=== PATIENT | male | born 1945 | race Caucasian/White ===

== ENCOUNTER 2024-05-01 12:58 | Outpatient (AMB) | payer MEDICARE, SELFPAY ==
[2024-05-01 13:09] VITALS: BP 128/54; PULSE 87; O2SAT 99; BMI 24.0
--- NOTE | 2024-05-01 13:09 | MHC.PC.OV ---
Vital Signs 05/01/24 13:09 Height 5 ft 8 in Weight 158 lb BMI 24.0 BP 128/54 L Blood Pressure Location Rt brachial Position Sitting Pulse 87 Pulse Source Pulse Oximeter Pulse Oximetry (%) 99 Oxygen Delivery Method Room Air Intake Visit Reasons: [employer] C[employer] Intake Note: Patient reports he was seeing Dr. Wilson from [facility] and followed her to [facility] practices. Patient reports hearing loss and would like a referral to ENT. Patient reports he would like to know the results of his last labs completed with [facility]. Patient reports he needs RX's for glipizide and gababpentin. Patient reports he has painful knees and would like to request Naproxen for pain relief. Patient states he had prostate cancer and had radiation done and he has a few lingering issues-cannot empty bladder, frequent urination, and unable to get an erection- patient is trying to get compensation from the [place] and is requesting a letter stating the issues he is having post radiation. Patient also wanted the doctor to know he gets out of breath with moderate exertion (like mowing the lawn). Courier Required: No Accompanied by: Self / Same As Patient Allergies No Known Allergies Allergy (Verified 05/01/24 13:16) Tobacco use date assessed: 05/01/24 Fall risk assessment: No Falls in past year Dental Screening Dental Screen Date: 05/01/24 Did you have a dental visit in the last 12 months?: Yes Did you have a dental problem in the last 6 months where you did not have access to dental care?: No Was dental information given to patient?: Patient has dentist HPI HPI Comments History of Present Illness Details 78 year old male with a past medical history of diabetes, arthritis, hyperlipidemia, prostate cancer for follow up Diabetes: On metformin 1000mg twice daily, glipizide. A1C due. Stable bilateral foot neuropathy. Annual eye exams with Dr Alba. ED on cialis CV: on lipitor. Prostate Ca-follows with urology, rad onc. Finished radiation and ADT. Follows with oncology OA:Bilateral wrist pain, bilateral knee pain. Using prn CBD. Esophageal stricture: Follows with Dr Schmitz. Labs in 2023 with anemia. Colonoscopy 2020. ROS see HPI PHYSICAL EXAM: GENERAL: Alert and oriented x 3. NAD EYES: EOMI. Anicteric. HENT: Moist mucous membranes. No scleral icterus. No cervical lymphadenopathy. LUNGS: Clear to auscultation bilaterally. CARDIOVASCULAR: Regular rate and rhythm. No murmur. No JVD. ABDOMEN: Soft, non-tender +bs EXTREMITIES: No edema. Non-tender. SKIN: No rashes or lesions. Warm. NEUROLOGIC: No focal neurological deficits. CN II-XII grossly intact PSYCHIATRIC: Cooperative. Appropriate mood and affect [facility] Medical History (Updated 05/15/24 @ 20:53 by Jordyn Wilson MD) Shoulder separation Vitamin B12 deficiency Type 2 diabetes mellitus Prostate cancer Hypercholesterolemia Hemorrhoids Esophageal stricture Elevated PSA Elevated MCV Arthritis Surgical History (Updated 05/01/24 @ 13:38 by Joanna Beverly CMA) History of eye surgery History of elbow surgery History of vasectomy History of colonoscopy Family History (Updated 05/01/24 @ 13:41 by Joanna Beverly CMA) Mother Alzheimer's dementia Father Cancer Brother Diabetes Social History (Updated 05/01/24 @ 13:39 by Joanna Beverly CMA) Household Members: Spouse and Children Housing: House Are you a primary home care provider to a significant other at home: No Do you presently have visiting nurse or other home services: No Alcohol intake: current Alcohol intake frequency: 0-2 drinks per day Alcohol type: wine Patient Tobacco Use Status: Former Tobacco user Cigarette Packs Per Day: 1 Years Smoked: 4 e-Cigarette/Vaping Use: Never Used service: Yes Current occupational status: employed Current occupation: [employer] Cognitive needs: No Hearing needs: Yes Vision needs: No Questionnaire PHQ-9 Over the last 2 weeks, how often have you been bothered by any of the following problems? 1. Little interest or pleasure in doing things: not at all 2. Feeling down, depressed, or hopeless: not at all 3. Trouble falling or staying asleep, or sleeping too much: not at all 4. Feeling tired or having little energy: not at all 5. Poor appetite or overeating: not at all 6. Feeling bad about yourself - or that you are a failure or have let yourself or your family down: not at all 7. Trouble concentrating on things, such as reading the newspaper or watching television: not at all 8. Moving or speaking so slowly that other people could have noticed. Or the opposite - being so fidgety or restless that you have been moving around a lot more than usual: not at all 9. Thoughts that you would be better off or of hurting yourself in some way: not at all Total score: 0 Depression Screening Interpretation: Negative Depression Screening Done: Yes 88084 - PHQ-9 Billing: Yes Source: Developed by Drs. Lior Lynn, Khadra Najera, Tim Hammer and colleagues, with an educational carol from [employer]. Thrive Questionnaire Date Thrive assessed: 05/01/24 I am a: Patient What is your living situation today?: I have a steady place to live Within the past 12 months, did the food you bought not last and you didn't have the money to get more?: Never true Within the past 12 months, did you worry whether your food would run out before you got money to buy more?: Never true Do you have trouble paying for medicines?: No Do you have trouble getting transportation to medical appointments?: No Do you have trouble paying your heating and electricity bill?: No Do you have trouble taking care of your child, family member or friend?: No Do you have trouble with day-to-day activities such as bathing, preparing meals, shopping, managing finances, etc.?: No Are you currently unemployed and looking for a job?: No Are you interested in more education?: No Please select the resources that you would like help with: None Currently or been in a relationship where the following occur: No concerns reported THRIVE Score: 0 AUDIT C Alcohol Use Questionnaire (AUDIT-C) 1. How often do you have a drink containing alcohol?: 2-3 times a week 2. How many drinks containing alcohol do you have on a typical day when you are drinking?: 1 or 2 3. How often do you have six or more drinks on one occasion?: Never Total Score: 3 ASHLI-7 AMB Questionnaire ASHLI-7 Date ASHLI - 7 assessed: 05/01/24 Feeling nervous, anxious, or on edge: 0 = Not at all Not being able to stop or control worryin = Not at all Worrying too much about different things: 0 = Not at all Trouble relaxin = Not at all Being so restless that it is hard to sit still: 0 = Not at all Becoming easily annoyed or irritable: 0 = Not at all Feeling afraid as if something awful might happen: 0 = Not at all Total ASHLI-7 score (0-4 normal; 5-9 mild; 10-14 moderate; 15-21 severe): 0 Source: Developed by Drs. Lior Lynn, Kharda Najera, Tim Hammer and colleagues, with an educational carol from [employer]. ASHLI-7 Assessment Billing ASHLI-7 Assessment Tool: ASHLI-7 Assessment 43024 Physical exam (Primary Care) Vital Signs: Last Vital Signs Pulse 87 05/01/24 13:09 BP 128/54 L 05/01/24 13:09 Pulse Ox 99 05/01/24 13:09 Oxygen Delivery Method Room Air 05/01/24 13:09 BMI result Body Mass Index 24.0 Tobacco/Smoking Status: Tobacco use Status Tobacco use date assessed 05/01/24 05/01/24 13:23 Patient Tobacco Use Status Former Tobacco user 05/01/24 13:39 e-Cigarette/Vaping Use Never Used 05/01/24 13:39 PHQ-9: PHQ-9 Score PHQ-9: Total score 0 05/15/24 20:53 Depression Screening Interpretation: Negative Thrive Assessment: Date of Thrive Assessment Date Thrive assessed 05/01/24 05/01/24 13:34 Currently or been in a relationship where the following occur: No concerns reported Assessment and Plan Assessment & Plan (1) Hypercholesterolemia: Code(s): E78.00 - Pure hypercholesterolemia, unspecified Plan: stable on statin (2) Prostate cancer: Code(s): C61 - Malignant neoplasm of prostate (3) Type 2 diabetes mellitus: Code(s): E11.9 - Type 2 diabetes mellitus without complications Qualifiers: Diabetes mellitus complication detail: with polyneuropathy Diabetes mellitus complication status: with neurologic complications Diabetes mellitus termination clerk insulin use: without termination clerk use Qualified Code(s): E11.42 - Type 2 diabetes mellitus with diabetic polyneuropathy Plan: check labs (4) Anemia: Code(s): D64.9 - Anemia, unspecified Qualifiers: Anemia type: unspecified type Qualified Code(s): D64.9 - Anemia, unspecified (5) Bilateral knee pain: Code(s): M25.561 - Pain in right knee; M25.562 - Pain in left knee (6) Globus sensation: Code(s): R09.A2 - Foreign body sensation, throat Orders: Orders Vitamin B12 and Folate 05/01/24 E11.9 - Type 2 diabetes mellitus without complications, C61 - Malignant neoplasm of prostate, E78.00 - Pure hypercholesterolemia, unspecified, D64.9 - Anemia, unspecified Hemoglobin A1c 05/01/24 E11.9 - Type 2 diabetes mellitus without complications, C61 - Malignant neoplasm of prostate, E78.00 - Pure hypercholesterolemia, unspecified, D64.9 - Anemia, unspecified Lipid Panel 05/01/24 E11.9 - Type 2 diabetes mellitus without complications, E78.00 - Pure hypercholesterolemia, unspecified Microalbumin, Random (w Creat) 05/01/24 E11.9 - Type 2 diabetes mellitus without complications, E78.00 - Pure hypercholesterolemia, unspecified Comprehensive Met. Panel 05/01/24 E11.9 - Type 2 diabetes mellitus without complications, E78.00 - Pure hypercholesterolemia, unspecified Complete Blood Count Auto Diff 05/01/24 E11.9 - Type 2 diabetes mellitus without complications, C61 - Malignant neoplasm of prostate, E78.00 - Pure hypercholesterolemia, unspecified, D64.9 - Anemia, unspecified Comprehensive Met. Panel 05/01/24 E11.9 - Type 2 diabetes mellitus without complications, C61 - Malignant neoplasm of prostate, E78.00 - Pure hypercholesterolemia, unspecified, D64.9 - Anemia, unspecified Hemoglobin A1c 05/01/24 E11.9 - Type 2 diabetes mellitus without complications, E78.00 - Pure hypercholesterolemia, unspecified Referrals Ear/Nose/Throat Referral H91.90 - Unspecified hearing loss, unspecified ear, R09.A2 - Foreign body sensation, throat Orthopedics Referral M25.561 - Pain in right knee, M25.562 - Pain in left knee Medications: New cyanocobalamin (vitamin B-12) soft gel 1,000 mcg PO DAILY 90 caps 3RF tamsulosin 0.4 mg PO DAILY 90 caps 3RF 90 days atorvastatin 10 mg PO DAILY 90 tabs 3RF 90 days gabapentin 100 - 200 mg (1 - 2 x 100 mg) PO TID 540 caps 3RF 90 days glipizide 10 mg PO DAILY 90 tabs 3RF 90 days Coding Level of Care Code Est Pt Level 4 (84334) Diagnoses Hypercholesterolemia E78.00 Prostate cancer C61 Type 2 diabetes mellitus with diabetic polyneuropathy, without long-term current use of insulin E11.42 Diabetes mellitus complication detail: with polyneuropathy Diabetes mellitus complication status: with neurologic complications Diabetes mellitus jail insulin use: without jail use Anemia, unspecified type D64.9 Anemia type: unspecified type Bilateral knee pain M25.561; M25.562 Globus sensation R09.A2 Additional Codes ASHLI-7 Assessment Billing - ASHLI-7 Assessment Tool: ASHLI-7 Assessment 96150 ([id number])
== END 2024-05-01 14:21 | disposition home or self-care (01) ==
PROVIDERS: PCP Internal Medicine; Visit Provider Internal Medicine
DX: E78.00 Pure hypercholesterolemia, unspecified (principal); C61 Malignant neoplasm of prostate; E11.42 Type 2 diabetes mellitus with diabetic polyneuropathy; D64.9 Anemia, unspecified; M25.561 Pain in right knee; M25.562 Pain in left knee; R09.A2 Foreign body sensation, throat
CPT/HCPCS: 99204; 99214

== ENCOUNTER 2024-05-01 14:25 | Outpatient (REF) | payer MEDICARE, SELFPAY ==
[2024-05-01 17:54] LABS: Estimated Average Glucose 206 mg/dL; Hemoglobin A1c % 8.8 % (<6.0)
[2024-05-01 18:01] LABS: Alanine Aminotransferase 22 U/L (0-40); Albumin Level 3.8 g/dL (3.5-5.0); Alkaline Phosphatase 47 U/L (39-117); Anion Gap 13 (12-20); Aspartate Amino Transferase 19 U/L (5-37); Bilirubin Total 0.9 mg/dL (0.0-1.0); Blood Urea Nitrogen 21 mg/dL (9-16); Calcium 8.9 mg/dL (8.4-10.2); Carbon Dioxide 22 mmol/L (22-29); Chloride 107 mmol/L (96-108); Cholesterol 109 mg/dL (<200); Estimated Glomerular Filt Rate > 60; Glucose Random 337 mg/dL (60-115); HDL Cholesterol 34 mg/dL (>40); LDL Cholesterol Calculated 38 mg/dL (<100); Potassium 4.7 mmol/L (3.3-5.1); Sodium 137 mmol/L (135-145); Total Protein 6.2 g/dL (6.5-8.0); Triglycerides 186 mg/dL (<150)
[2024-05-01 18:08] LABS: Microalbum/Creatinine Ratio Ur 120.9 ug/mg cr (<30)
[2024-05-01 18:31] LABS: Folate 10.7 ng/mL (> or = 4.0); Vitamin B12 968 pg/mL (200-900)
== END 2024-05-01 14:26 | disposition home or self-care (01) ==
LOC: HO.WFDLDS 14:25
PROVIDERS: Visit Provider Internal Medicine
DX: E11.9 Type 2 diabetes mellitus without complications (principal); C61 Malignant neoplasm of prostate; E78.00 Pure hypercholesterolemia, unspecified; D64.9 Anemia, unspecified
CPT/HCPCS: 36415; 80053; 80061; 82043; 82570; 82607; 82746; 83036

== ENCOUNTER 2024-09-04 09:03 | Outpatient (AMB) | payer MEDICARE, SELFPAY ==
[2024-09-04 09:07] VITALS: BP 118/60; PULSE 82; O2SAT 97; BMI 23.0
--- NOTE | 2024-09-04 09:07 | A.OFFPC_ITS ---
Vital Signs 09/04/24 09:07 Height 5 ft 8 in Weight 151 lb 2 oz BMI 23.0 BP 118/60 Blood Pressure Location Lt brachial Position Sitting Pulse 82 Pulse Source Pulse Oximeter Pulse Oximetry (%) 97 Oxygen Delivery Method Room Air Intake Visit Reasons: dm Allergies No Known Allergies Allergy (Verified 09/04/24 09:10) Tobacco use date assessed: 09/04/24 Fall risk assessment: 1 Fall in past year Last assessed Fall Risk: 09/04/24 Dental Screening Dental Screen Date: 09/04/24 Did you have a dental visit in the last 12 months?: Yes Did you have a dental problem in the last 6 months where you did not have access to dental care?: No Was dental information given to patient?: Patient has dentist HPI HPI Comments History of Present Illness Details 78 year old male with a past medical his tory of diabetes, arthritis, hyperlipidemia, prostate cancer for follow up Diabetes: On metformin 1000mg twice daily, glipizide. A1C due. Stable bilateral foot neuropathy. Annual eye exams with Dr Alba. ED on cialis CV: on lipitor. Prostate Ca-follows with urology, rad onc. Finished radiation and ADT. Follows with oncology OA:Bilateral wrist pain, bilateral knee pain. Using prn CBD. Esophageal stricture: Follows with Dr Schmitz. Labs in 2023 with anemia. Colonoscopy 2020. ROS see HPI PHYSICAL EXAM: GENERAL: Alert and oriented x 3. NAD EYES: EOMI. Anicteric. HENT: Moist mucous membranes. No scleral icterus. No cervical lymphadenopathy. LUNGS: Clear to auscultation bilaterally. CARDIOVASCULAR: Regular rate and rhythm. No murmur. No JVD. ABDOMEN: Soft, non-tender +bs EXTREMITIES: No edema. Non-tender. SKIN: No rashes or lesions. Warm. NEUROLOGIC: No focal neurological deficits. CN II-XII grossly intact PSYCHIATRIC: Cooperative. Appropriate mood and affect [facility] Medical History Shoulder separation Vitamin B12 deficiency Type 2 diabetes mellitus Prostate cancer Hypercholesterolemia Hemorrhoids Esophageal stricture Elevated PSA Elevated MCV Arthritis Surgical History History of eye surgery History of elbow surgery History of vasectomy History of colonoscopy Family History Mother Alzheimer's dementia Father Cancer Brother Diabetes Social History Household Members: Spouse and Children Housing: House Are you a primary tire care manager to a significant other at home: No Do you presently have visiting nurse or other home services: No 75 years or older and lives alone: No Alcohol intake: current Alcohol intake frequency: 0-2 drinks per day Alcohol type: wine Patient Tobacco Use Status: Former Tobacco user Cigarette Packs Per Day: 1 Years Smoked: 4 e-Cigarette/Vaping Use: Never Used service: Yes Current occupational status: employed Current occupation: [employer] Cognitive needs: No Hearing needs: Yes Vision needs: No Questionnaire PHQ-9 Over the last 2 weeks, how often have you been bothered by any of the following problems? 1. Little interest or pleasure in doing things: not at all 2. Feeling down, depressed, or hopeless: not at all 3. Trouble falling or staying asleep, or sleeping too much: not at all 4. Feeling tired or having little energy: not at all 5. Poor appetite or overeating: not at all 6. Feeling bad about yourself - or that you are a failure or have let yourself or your family down: not at all 7. Trouble concentrating on things, such as reading the newspaper or watching television: not at all 8. Moving or speaking so slowly that other people could have noticed. Or the opposite - being so fidgety or restless that you have been moving around a lot more than usual: not at all 9. Thoughts that you would be better off or of hurting yourself in some way: not at all Total score: 0 Depression Screening Interpretation: Negative Depression Screening Done: Yes 77034 - PHQ-9 Billing: Yes Source: Developed by Drs. Lior Lynn, Khadra Najera, Tim Hammer and colleagues, with an educational carol from [employer]. Thrive Questionnaire Date Thrive assessed: 08/28/24 I am a: Patient What is your living situation today?: I have a steady place to live Within the past 12 months, did the food you bought not last and you didn't have the money to get more?: I choose not to answer this question Within the past 12 months, did you worry whether your food would run out before you got money to buy more?: I choose not to answer this question Do you have trouble paying for medicines?: No Do you have trouble getting transportation to medical appointments?: No Do you have trouble paying your heating and electricity bill?: No Do you have trouble taking care of your child, family member or friend?: No Do you have trouble with day-to-day activities such as bathing, preparing meals, shopping, managing finances, etc.?: No Are you currently unemployed and looking for a job?: No Are you interested in more education?: No Please select the resources that you would like help with: None Currently or been in a relationship where the following occur: No concerns reported THRIVE Score: 0 AUDIT C Alcohol Use Questionnaire (AUDIT-C) 1. How often do you have a drink containing alcohol?: 4 or more times a week 2. How many drinks containing alcohol do you have on a typical day when you are drinking?: 1 or 2 3. How often do you have six or more drinks on one occasion?: Never Total Score: 4 ASHLI-7 AMB Questionnaire ASHLI-7 Date ASHLI - 7 assessed: 05/01/24 Feeling nervous, anxious, or on edge: 0 = Not at all Not being able to stop or control worryin = Not at all Worrying too much about different things: 0 = Not at all Trouble relaxin = Not at all Being so restless that it is hard to sit still: 0 = Not at all Becoming easily annoyed or irritable: 0 = Not at all Feeling afraid as if something awful might happen: 0 = Not at all Total ASHLI-7 score (0-4 normal; 5-9 mild; 10-14 moderate; 15-21 severe): 0 Source: Developed by Drs. Lior Lynn, Khadra Najera, Tim Hammer and colleagues, with an educational carol from [employer]. Physical exam (Primary Care) Vital Signs: Last Vital Signs Pulse 82 09/04/24 09:07 BP 118/60 09/04/24 09:07 Pulse Ox 97 09/04/24 09:07 Oxygen Delivery Method Room Air 09/04/24 09:07 BMI result Body Mass Index 23.0 Tobacco/Smoking Status: Tobacco use Status Tobacco use date assessed 09/04/24 09/04/24 09:11 Patient Tobacco Use Status Former Tobacco user 09/04/24 09:11 e-Cigarette/Vaping Use Never Used 09/04/24 09:11 PHQ-9: PHQ-9 Score PHQ-9: Total score 0 09/04/24 09:28 Depression Screening Interpretation: Negative Thrive Assessment: Date of Thrive Assessment Date Thrive assessed 08/28/24 09/04/24 09:11 Currently or been in a relationship where the following occur: No concerns reported Results AMB Hemoglobin A1c AMB Hemoglobin A1c 11.0 % Last Edit by Patricia Deal CMA on 09/04/24 09:28 Results Reviewed Results Reviewed: Laboratory Last Values Hgb A1c (Clinic) 11.0 % (4.0-6.0) H 09/04/24 09:27 Coding Level of Care Code Est Pt Level 4 (43589) Complex EM visit Add On G2211 Diagnoses Type 2 diabetes mellitus with diabetic polyneuropathy, without long-term current use of insulin E11.42 Diabetes mellitus senior living insulin use: without senior living use Diabetes mellitus complication status: with neurologic complications Diabetes mellitus complication detail: with polyneuropathy Prostate cancer C61 Additional Codes PHQ-9 - 59402 - PHQ-9 Billing: Yes ([id number]) Assessment & Plan Assessment & Plan (1) Type 2 diabetes mellitus: Code(s): E11.9 - Type 2 diabetes mellitus without complications Category: Medical Qualifiers: Diabetes mellitus senior living insulin use: without senior living use Diabetes mellitus complication status: with neurologic complications Diabetes mellitus complication detail: with polyneuropathy Qualified Code(s): E11.42 - Type 2 diabetes mellitus with diabetic polyneuropathy Plan: Uncontrolled. Increase glipizide to 20mg daily. Start actos 30mg daily. Continue metformin (2) Prostate cancer: Code(s): C61 - Malignant neoplasm of prostate Category: Medical Plan: Continue follow up Orders: Orders AMB Hemoglobin A1c Today Z13.9 - Encounter for screening, unspecified Medications: New glipizide ER 20 mg (2 x 10 mg) PO DAILY 180 tabs 3RF pioglitazone 30 mg PO DAILY 90 tabs 3RF Refilled gabapentin 100 - 200 mg (1 - 2 x 100 mg) PO TID 90 days 540 caps 3RF Discontinued glipizide Discontinued Reason: Doctor's Order 10 mg PO DAILY 90 days 90 tabs 3RF
== END 2024-09-04 09:57 | disposition home or self-care (01) ==
PROVIDERS: PCP Internal Medicine; Visit Provider Internal Medicine
DX: E11.42 Type 2 diabetes mellitus with diabetic polyneuropathy (principal); C61 Malignant neoplasm of prostate; Z13.9 Encounter for screening, unspecified

== ENCOUNTER → 2024-09-04 09:03 | Outpatient (BNVA) | payer MEDICARE, SELFPAY | PROVIDERS: PCP Internal Medicine; Visit Provider Internal Medicine | DX: E11.42 Type 2 diabetes mellitus with diabetic polyneuropathy (principal); C61 Malignant neoplasm of prostate; Z79.84 Long term (current) use of oral hypoglycemic drugs | CPT/HCPCS: 83036; 96127; 99212 ==

== ENCOUNTER 2024-11-28 09:09 | Outpatient (REF) | payer MEDICARE, SELFPAY ==
[2024-11-28 11:19] LABS: MANUAL DIFF FLAG NO
[2024-11-28 11:33] LABS: Basophils Percent Auto 0.8 % (0-2); Eosinophils Absolute Auto 0.2 X10*3/uL (0.0-0.4); Eosinophils Percent Auto 5.2 % (0-4); Hematocrit 35.3 % (42.0-52.0); Hemoglobin 11.3 g/dl (14.0-18.0); Imm Gran Abs Auto 0.01 X10*3/uL (0.00-0.03); Imm Gran Pct Auto 0.3 % (0.0-0.4); Lymphocytes Absolute Auto 0.9 X10*3/uL (1.2-4.9); Lymphocytes Percent Auto 23.3 % (20-40); Mean Corpuscular Hemoglobin 27.8 pg (27.0-33.0); Mean Corpuscular Volume 86.7 fL (80.0-98.0); Mean Platelet Volume 10.3 fL (9.4-12.4); Monocytes Absolute Auto 0.3 X10*3/uL (0.1-1.2); Monocytes Percent Auto 8.3 % (2-11); Neutrophils Absolute Auto 2.4 x10*3/uL (2.0-8.3); Neutrophils Percent Auto 62.1 % (45-73); Platelet Count 232 X10*3/uL (160-400); Red Blood Count 4.07 X10*6/uL (4.60-5.80); Red Cell Distribution Width 16.7 % (11.0-16.0); White Blood Count 3.9 X10*3/uL (4.8-10.8)
[2024-11-28 11:50] LABS: Estimated Average Glucose 212 mg/dL; Hemoglobin A1C 219.9871 umol/L
[2024-11-28 12:27] LABS: Alanine Aminotransferase 81 U/L (0-40); Albumin Level 3.7 g/dL (3.5-5.0); Alkaline Phosphatase 43 U/L (39-117); Anion Gap 14 (12-20); Aspartate Amino Transferase 127 U/L (5-37); Bilirubin Total 1.2 mg/dL (0.0-1.0); Blood Urea Nitrogen 24 mg/dL (9-16); Calcium 9.1 mg/dL (8.4-10.2); Carbon Dioxide 27 mmol/L (22-29); Chloride 108 mmol/L (96-108); Estimated Glomerular Filt Rate > 60; Glucose Random 146 mg/dL (60-115); Potassium 4.7 mmol/L (3.3-5.1); Sodium 144 mmol/L (135-145); Total Protein 6.6 g/dL (6.5-8.0)
== END 2024-11-28 09:10 | disposition home or self-care (01) ==
LOC: HO.WFDLDS 09:09
PROVIDERS: Visit Provider Internal Medicine
DX: E11.9 Type 2 diabetes mellitus without complications (principal); C61 Malignant neoplasm of prostate; E78.00 Pure hypercholesterolemia, unspecified; D64.9 Anemia, unspecified
CPT/HCPCS: 36415; 80053; 83036; 85025

== ENCOUNTER 2024-12-04 11:11 | Outpatient (AMB) | payer MEDICARE, OTHER, SELFPAY ==
--- NOTE | 2024-12-04 11:36 | A.OFFPC_ITS ---
Vital Signs 12/04/24 11:40 Height 5 ft 8 in Weight 150 lb 6 oz BMI 22.9 BP 124/54 L Blood Pressure Location Lt brachial Position Sitting Respiration 14 Pulse 75 Pulse Source Pulse Oximeter Temp 98.3 F Temp Source Oral Pulse Oximetry (%) 98 Oxygen Delivery Method Room Air Intake Visit Reasons: 3 MONTHS F/U Intake Note: Three month follow up. Cough for about 10 days, mostly at night. Motion Study Engineer Required: No Allergies No Known Allergies Allergy (Verified 12/04/24 11:38) Medication List - Last Reconciled 12/04/24 by Jordyn Wilson MD ascorbic acid (vitamin C) 1 g PO Q6H atorvastatin 10 mg PO DAILY 90 days azithromycin For 250 mg dose pack: take 500 mg today (day 1), then 250 mg for 4 days (days 2-5) PO cholecalciferol (vitamin D3) 125 mcg PO DAILY cyanocobalamin (vitamin B-12) 1,000 mcg PO DAILY empagliflozin (Jardiance) 10 mg PO DAILY gabapentin 300 mg PO BID glipizide ER 20 mg (2 x 10 mg) PO DAILY metformin 1,000 mg PO BID pioglitazone 30 mg PO DAILY prednisone 40 mg (2 x 20 mg) PO DAILY tamsulosin 0.4 mg PO DAILY 90 days Tobacco use date assessed: 12/04/24 Dental Screening Dental Screen Date: 09/04/24 HPI HPI Comments History of Present Illness Details 79 year old male with a past medical his tory of diabetes, arthritis, hyperlipidemia, prostate cancer for follow up Reports 10 day history of cough, increased wheezing. Denies fever Diabetes: On metformin 1000mg twice daily, glipizide. A1C 9.0%. Stable bilateral foot neuropathy. Annual eye exams with Dr Alba. ED on cialis CV: on lipitor. Denies chest pain. Prostate Ca-follows with urology, rad onc. Finished radiation and ADT. Follows with oncology OA:Bilateral wrist pain, bilateral knee pain. Using prn CBD. Esophageal stricture: Follows with Dr Schmitz. Labs in 2023 with anemia. Colonoscopy 2020. ROS see HPI PHYSICAL EXAM: GENERAL: Alert and oriented x 3. NAD EYES: EOMI. Anicteric. HENT: Moist mucous membranes. No scleral icterus. No cervical lymphadenopathy. LUNGS: Clear to auscultation bilaterally. CARDIOVASCULAR: Regular rate and rhythm. No murmur. No JVD. ABDOMEN: Soft, non-tender +bs EXTREMITIES: No edema. Non-tender. SKIN: No rashes or lesions. Warm. NEUROLOGIC: No focal neurological deficits. CN II-XII grossly intact PSYCHIATRIC: Cooperative. Appropriate mood and affect [facility] Medical History Shoulder separation Vitamin B12 deficiency Type 2 diabetes mellitus Prostate cancer Hypercholesterolemia Hemorrhoids Esophageal stricture Elevated PSA Elevated MCV Arthritis Surgical History History of eye surgery History of elbow surgery History of vasectomy History of colonoscopy Family History Mother Alzheimer's dementia Father Cancer Brother Diabetes Social History Household Members: Spouse and Children Housing: House Are you a primary animal care provider to a significant other at home: No Do you presently have visiting nurse or other home services: No 75 years or older and lives alone: No Alcohol intake: current Alcohol intake frequency: 0-2 drinks per day Alcohol type: wine Patient Tobacco Use Status: Former Tobacco user Cigarette Packs Per Day: 1 Years Smoked: 4 e-Cigarette/Vaping Use: Never Used service: Yes Current occupational status: employed Current occupation: [employer] Cognitive needs: No Hearing needs: Yes Vision needs: No Questionnaire PHQ-9 Over the last 2 weeks, how often have you been bothered by any of the following problems? 1. Little interest or pleasure in doing things: not at all 2. Feeling down, depressed, or hopeless: not at all 3. Trouble falling or staying asleep, or sleeping too much: not at all 4. Feeling tired or having little energy: not at all 5. Poor appetite or overeating: not at all 6. Feeling bad about yourself - or that you are a failure or have let yourself or your family down: not at all 7. Trouble concentrating on things, such as reading the newspaper or watching television: not at all 8. Moving or speaking so slowly that other people could have noticed. Or the opposite - being so fidgety or restless that you have been moving around a lot more than usual: not at all 9. Thoughts that you would be better off or of hurting yourself in some way: not at all Total score: 0 Depression Screening Interpretation: Negative Depression Screening Done: Yes 61964 - PHQ-9 Billing: Yes Source: Developed by Drs. Lior Lynn, Khadra Najera, Tim Hammer and colleagues, with an educational carol from [employer]. Thrive Questionnaire Date Thrive assessed: 12/04/24 I am a: Patient What is your living situation today?: I have a steady place to live Within the past 12 months, did the food you bought not last and you didn't have the money to get more?: Never true Within the past 12 months, did you worry whether your food would run out before you got money to buy more?: Never true Do you have trouble paying for medicines?: No Do you have trouble getting transportation to medical appointments?: No Do you have trouble paying your heating and electricity bill?: No Do you have trouble taking care of your child, family member or friend?: No Do you have trouble with day-to-day activities such as bathing, preparing meals, shopping, managing finances, etc.?: No Are you currently unemployed and looking for a job?: No Are you interested in more education?: No Please select the resources that you would like help with: None Currently or been in a relationship where the following occur: No concerns reported THRIVE Score: 0 AUDIT C Alcohol Use Questionnaire (AUDIT-C) 1. How often do you have a drink containing alcohol?: 4 or more times a week 2. How many drinks containing alcohol do you have on a typical day when you are drinking?: 1 or 2 3. How often do you have six or more drinks on one occasion?: Never Total Score: 4 ASHLI-7 AMB Questionnaire ASHLI-7 Date ASHLI - 7 assessed: 12/04/24 Feeling nervous, anxious, or on edge: 0 = Not at all Not being able to stop or control worryin = Not at all Worrying too much about different things: 0 = Not at all Trouble relaxin = Not at all Being so restless that it is hard to sit still: 0 = Not at all Becoming easily annoyed or irritable: 0 = Not at all Feeling afraid as if something awful might happen: 0 = Not at all Total ASHLI-7 score (0-4 normal; 5-9 mild; 10-14 moderate; 15-21 severe): 0 Source: Developed by Drs. Lior Lynn, Khadra Najera, Tim Hammer and colleagues, with an educational carol from [employer]. ASHLI-7 Assessment Billing ASHLI-7 Assessment Tool: ASHLI-7 Assessment 74162 Physical exam (Primary Care) Vital Signs: Last Vital Signs Temp 98.3 F 12/04/24 11:40 Pulse 75 12/04/24 11:40 Resp 14 12/04/24 11:40 BP 124/54 L 12/04/24 11:40 Pulse Ox 98 12/04/24 11:40 Oxygen Delivery Method Room Air 12/04/24 11:40 BMI result Body Mass Index 22.9 Tobacco/Smoking Status: Tobacco use Status Tobacco use date assessed 12/04/24 12/04/24 11:40 Patient Tobacco Use Status Former Tobacco user 12/04/24 11:47 e-Cigarette/Vaping Use Never Used 12/04/24 11:47 PHQ-9: PHQ-9 Score PHQ-9: Total score 0 12/04/24 12:17 Depression Screening Interpretation: Negative Thrive Assessment: Date of Thrive Assessment Date Thrive assessed 12/04/24 12/04/24 11:48 Currently or been in a relationship where the following occur: No concerns reported Coding Level of Care Code Est Pt Level 4 (78701) Complex EM visit Add On G2211 Diagnoses Type 2 diabetes mellitus with diabetic polyneuropathy, without long-term current use of insulin E11.42 Diabetes mellitus assisted insulin use: without assisted use Diabetes mellitus complication status: with neurologic complications Diabetes mellitus complication detail: with polyneuropathy Prostate cancer C61 Respiratory infection J98.8 Anemia, unspecified type D64.9 Anemia type: unspecified type Additional Codes ASHLI-7 Assessment Billing - ASHLI-7 Assessment Tool: ASHLI-7 Assessment 10354 ([id number]) PHQ-9 - 93369 - PHQ-9 Billing: Yes ([id number]) Assessment & Plan Assessment & Plan (1) Type 2 diabetes mellitus: Code(s): E11.9 - Type 2 diabetes mellitus without complications Category: Medical Qualifiers: Diabetes mellitus long term care pharmacist insulin use: without long term care pharmacist use Diabetes mellitus complication status: with neurologic complications Diabetes mellitus complication detail: with polyneuropathy Qualified Code(s): E11.42 - Type 2 diabetes mellitus with diabetic polyneuropathy Plan: Uncontrolled Sart jardiance Improve dietary compliance (2) Prostate cancer: Code(s): C61 - Malignant neoplasm of prostate Category: Medical Plan: continue follow up with urology (3) Respiratory infection: Code(s): J98.8 - Other specified respiratory disorders Category: Medical Plan: azithromycin, prendisone ordered Call for persistent or worsening symptoms (4) Anemia: Code(s): D64.9 - Anemia, unspecified Category: Medical Qualifiers: Anemia type: unspecified type Qualified Code(s): D64.9 - Anemia, unspecified Plan: Monitor. consider referral to hematology for any worsening. Path review, iron ordered. b12 deficiency Orders: Orders Complete Blood Count Auto Diff 12/04/24 D64.9 - Anemia, unspecified, E11.42 - Type 2 diabetes mellitus with diabetic polyneuropathy Hemoglobin A1c 12/04/24 D64.9 - Anemia, unspecified, E11.42 - Type 2 diabetes mellitus with diabetic polyneuropathy IRON PROFILE 12/04/24 D64.9 - Anemia, unspecified, E11.42 - Type 2 diabetes mellitus with diabetic polyneuropathy US abdomen limited 12/04/24 E11.42 - Type 2 diabetes mellitus with diabetic polyneuropathy Pathologist Review - CBC 12/04/24 D64.9 - Anemia, unspecified, E11.42 - Type 2 diabetes mellitus with diabetic polyneuropathy Medications: New empagliflozin (Jardiance) 10 mg PO DAILY 90 tabs 3RF azithromycin For 250 mg dose pack: take 500 mg today (day 1), then 250 mg for 4 days (days 2-5) PO 6 tabs 0RF empagliflozin (Jardiance) 10 mg PO DAILY 90 tabs 3RF prednisone 40 mg (2 x 20 mg) PO DAILY 6 tabs 0RF Changed From gabapentin 100 - 200 mg (1 - 2 x 100 mg) PO TID 90 days 540 caps 3RF To gabapentin 300 mg PO BID
[2024-12-04 11:40] VITALS: BP 124/54; PULSE 75; RESP 14; TEMP 36.8; O2SAT 98; BMI 22.9
--- OUTSIDE RECORDS SUMMARY | 2024-12-04 12:45 | XMS_ITS | Data Portability ---
Author Organization [place] - [facility], Allergy Address [address] [address] Care Team Providers Care Water Leak Repairer Name Role Phone SANTO DANG Primary Care Provider [phone] Assessment Encounter Date Assessment Date Assessment LastModified by Organization Details LastModified Time 11/30/2024 11/30/2024 79-year-old male presents for evaluation of hearing loss. Cerumen impaction removed bilaterally. Bilateral tympanic membranes are intact with aerated middle ear spaces. Audiometric testing demonstrated sensorineural hearing loss bilaterally, worse on the right. Given asymmetric hearing loss, we discussed MRI of the IACs versus observation with serial audiometric testing in 6 months. Patient elected to proceed with observation at this time. He will follow-up in 6 months for repeat audiometric testing, or sooner with any concerns. Patient is a candidate for amplification and medical clearance was provided today. [email or web address] Not available 11/30/2024 14:05:26 Plan of Treatment Reminders Order Date Submit Date Provider Last Modified By Organization Details Last Modified Time Details Appointments Hearing Test 2024 01:00P M Hearing Test Not available Not available Not available Establish ed 15 2024 01:30P M GUERA NORTH PA-C Not available Not available Not available Lab None recorded. Referral None recorded. Procedures None recorded. Surgeries None recorded. Imaging None recorded. Medication Orders None recorded. Patient TargetsNo targets recorded. Patient InstructionsNo instructions recorded. Reason for Referral None Reported. Results Created Date Observation Date Name Description Value Unit Range Abnormal Flag Note LastModifiedBy Organization Detail LastModifiedTime 12/01/19 25 audio gram No observ ation record ed. BARCODE Not Available 2024 14:48:10 Result Notes None recorded. Problems Name Problem SNOMED Code Status Onset Date Resolution Date Notes Provider Name and Address Organization Details Recorded Time Sensorineur al hearing loss of bilateral ears 826667393 Active 2024 SYLVESTER YOST [address] [facility],[place] [address], [place], [address], [facility] 13:09:22 Impacted cerumen of bilateral ears 5851705164191 108 Active 2024 GUERA NORTH PA-C [address] [facility],[place] [address], [place], [address], [facility] 14:04:01 Problem Notes None recorded. Procedures Surgical History Date Name Laterality Status Provider Name and Address Organization Details Recorded Time Cerumen removal without microscope bilat completed GUERA NORTH PA-C [address] [facility],[address], [address], [facility] 11/30/2024 14:03:56 Comp Audio with Tymps (18342 & 75495) completed SYLVESTER YOST [address] [facility],[place] [address], [place], [address], [facility] 11/30/2024 13:09:17 Imaging Results Imaging Date Name Status LastModified by Organiz ation Details LastModified Time 11/30/2024 audiogram completed BARCODE Information no t available 11/30/2024 14:48:10 Procedure Notes None recorded. Medical Equipment None Reported. Medications Name Sig Start Date Stop Date Status Note LastModified by Organization Details LastModified Time atorvastatin 10 mg tablet 10 mg every day by oral route. active Not Available Not Available No t Available glipizide ER 10 mg tablet, extended release 24 hr TAKE 2 TABLETS BY MOUTH EVERY DAY active Not Available Not Available No t Available glipizide 10 mg tablet 10 mg every day by oral route. active Not Available Not Available No t Available cyanocobalamin (vit B-12) 1,000 mcg tablet TAKE 1 TABLET BY MOUTH EVERY DAY active Not Available Not Available No t Available tamsulosin 0.4 mg capsule TAKE 1 CAPSULE BY MOUTH EVERY DAY active Not Available Not Available No t Available metformin 1,000 mg tablet 1000 mg every 12 hours by oral route. active Not Available Not Available No t Available betamethasone dipropionate 0.05 % topical cream APPLY TO ITCHY RASH ON BACK TWICE DAILY FOR UP TO 2 WEEKS NEEDED active Not Available Not Available No t Available gabapentin 100 mg capsule 300 mg twice a day by oral route. active Not Available Not Available No t Available pioglitazone 30 mg tablet 30 mg every day by oral route. active Not Available Not Available No t Available Vitals Date Recorded Body height Body mass index (BMI) Body weight Provider Name and Address Organization Details Last Updated DateTime 11/30/2024 172.72 cm 23.1 kg/m2 41741.04 g Suzanna Tinoco [place] - [facility] 11/30/2024 13:22:01 Social History None recorded. Functional Status None recorded. Mental Status None recorded. Family History Nothing Reported. Medical History Condition Response Hearing Loss Y Past Encounters Encounter ID Performer Location Encounter Start Date Encounter Closed Date Diagnosis/Indication Diagnosis SNOMED-CT Code Diagnosis ICD10 Code Diagnosis Note [id number] GUERA NORTH PA-C [facility] [address] [address] 11/30/2024 12:21:20 11/30/2024 14:00:04 Impacted cerumen of bilateral ears [id number] 485996 H61.23 Sensorineu ral hearing loss of bilateral ears 419553901 H90.3 [id number] SYLVESTER YOST [facility] [address] [address] 11/30/2024 12:21:20 11/30/2024 14:00:03 Sensorineural hearing loss of bilateral ears 971362864 H90.3 Audiologic al evaluation results: Right ear: {{Normal* Normal through 2 kHz Mild M oderate Mo derately-s evere Shanna re Profoun d}} {{hearing hearing. s loping to a mild slopi ng to a moderate s loping to moderately severe slo ping to severe* sl oping to profound f lat high frequency low frequency mid frequency cookie bite elizabeth curve}} {{with sen sorineural hearing loss with* cond uctive hearing loss with mixed hearing loss with}} {{excellen t* good fa ir poor no measurable }} word recognitio n. Left ear: {{Normal N ormal through 2 kHz* Mild Moderate M oderately- severe Sev ere Profou nd}} {{hearing hearing. s loping to a mild slopi ng to a moderate s loping to moderately severe slo ping to severe* sl oping to profound f lat high frequency low frequency mid frequency cookie bite elizabeth curve}} {{with sen sorineural hearing loss with* cond uctive hearing loss with mixed hearing loss with}} {{excellen t* good fa ir poor no measurable }} word recognitio n. Tympanomet ry: Right Ear:{{Type A* Type As Type Ad Type C Type C, shallow & rounded Ty pe B Type B with large volume Cou ld not maintain a hermetic seal}} Left Ear:{{Type A* Type As Type Ad Type C Type C, shallow & rounded Ty pe B Type B with large volume Cou ld not maintain a hermetic seal}} Health Concerns Section Related Observation LastModified by Organization Detai ls LastModified Time None Recorded Concern Status LastModified by Organization Details LastModified Time None Recorded Advance Directives Directive None Recorded Payers Encounter Date Sequence Insurance Name Policy Number Policy Lindsey Covered Member ID Lindsey Member ID Guarantor Name 11/30/2024 2 [facility] Sonny Morenoon [id number] Sonny Morenoon 11/30/2024 1 [place] [facility] [employer] Sonny Belleterson [id number] Sonny Lewis Nelson 11/30/2024 1 [place] [facility] Sonny Lewis Nelson [id number] Sonny Lewis Nelson 11/30/2024 2 [employer] (MEDICARE SUPPLEMENT) Sonny Lewis Nelson [id number] Sonny Lewis Nelson Notes Date Note Type Note Provider Name and Address Organization Details Recorded Time 11/30/2024 text/html 79-year-old male presents for evaluation of hearing loss. He reports gradual decline in his hearing worse on the right for the past few years. History of noise exposure in the . Denies otalgia, otorrhea, tinnitus, and vertigo. Denies history of recurrent ear infections or prior otologic surgeries. GUERA NORTH PA-C [address] [place] [address], [place], [address], [place] - [facility] 11/30/2024 14:06:46
--- OUTSIDE RECORDS SUMMARY | 2024-12-04 12:45 | XMS_ITS | Continuity of Care Document ---
Author Organization [place] - [facility], [facility] Address [address] [place] [address] Care Team Providers Care Bed Operator Name Role Phone CornelSANTO LEÓN Primary Care Provider [phone] Assessment Encounter Date Assessment Date Assessment LastModified [...] amplification and medical clearance was provided today. [email or web address] Not available 11/30/2024 14:05:26 Plan of Treatment [...] Sensorineur al hearing loss of bilateral ears 957701181 Active 2024 SYLVESTER YOST 100 [facility], [place], [address], [facility] 13:09:22 Impacted cerumen of bilateral ears 0081586870450 108 Active 2024 GUERA NORTH PA-C [address] [facility], [address], [place], [address], [facility] 14:04:01 Problem Notes None recorded. Procedures Surgical History Date Name Laterality Status Provider Name and Address Organization Details Recorded Time Cerumen removal without microscope bilat completed GUERA NORTH PA-C 100 [facility],[address], [address], [facility] 11/30/2024 14:03:56 Comp Audio with Tymps (16795 & 13558) completed SYLVESTER YOST 100 [facility],[address], [address], [facility] 11/30/2024 13:09:17 Imaging Results None recorded. Procedure Notes None recorded. Medical Equipment None [...] Updated DateTime 11/30/2024 172.72 cm 23.1 kg/m2 97398.[address] [place] [facility] 11/30/2024 13:22:01 Social History None recorded. Functional Status None recorded. Mental Status None recorded. Family History Nothing Reported. Medical History Condition Response Hearing Loss Y Past Encounters Encounter ID Performer Location Encounter Start Date Encounter Closed Date Diagnosis/Indication Diagnosis SNOMED-CT Code Diagnosis ICD10 Code Diagnosis Note [id number] GUERA NORTH PA-C [facility] [address] [address] 11/30/2024 12:21:20 11/30/2024 14:00:04 Impacted cerumen of bilateral ears [id number] 684635 H61.23 Sensorineu ral hearing loss of bilateral ears 008703398 H90.3 [id number] SYLVESTER YOST [facility] [address] [address] 11/30/2024 12:21:20 11/30/2024 14:00:03 Sensorineural hearing loss of bilateral ears 953331818 H90.3 Audiologic al evaluation results: Right ear: [...] by Organization Details LastModified Time None Recorded Payers Encounter Date Sequence Insurance Name Policy Number Policy Lindsey Covered Member ID Lindsey Member ID Guarantor Name 11/30/2024 2 [facility] Sonny Lewis Nelson [id number] Sonny Lewis Nelson 11/30/2024 1 [place]ICARE [place]: [employer] Sonny Lewis Nelson [id number] Sonny L Leslie Notes Date Note Type Note Provider Name [...] or prior otologic surgeries. GUERA NORTH PA-C [address] [place] [address], [address], [facility] - [facility] 11/30/2024 14:06:46
--- OUTSIDE RECORDS SUMMARY | 2024-12-04 12:45 | XMS_ITS | Clinical Summary ---
Author Organization [facility] 299 [facility] Address [address] [place] [address] Phone Care Team Providers Care Paid Intern Name Role Phone Unavailable Primary Care Provider Unavailabl e Encounters Date Type Department Care Team Description 10/18/2024 Telephone Gastroenterology - [address] [phone] Maribel Ramirez MA Results 10/16/2024 Lab Requisition [facility] Lab [address] [place] [phone] Pio Schmitz MD Dysphagia, unspecified 10/13/2024 Lab Requisition [facility] Lab [address] [place] [phone] Phu Aguero PA Personal history of malignant neoplasm of prostate 09/29/2024 Telephone Gastroenterology - [address] [phone] Fabi Mora MA from Last 3 Months Social History Tobacco Use Types Packs/Day Years Used Date Smoking Tobacco: Never Assessed Sex and Gender Information Value Date Recorded Sex Assigned at Not on file Legal Sex Male 2:46 AM EST Gender Identity Not on file Sexual Orientation Not on file Plan of Treatment Health Maintenance Due Date Last Done Comments DTaP,Tdap,and Td Vaccines (1 - Tdap) 1965 Pneumococcal Vaccine: 50+ Years (1 of 1 - PCV) 1996 Zoster Vaccines (1 of 2) 1996 RSV Immunization Patients 60 + Years Old (1 - 1-dose 75+ series) 2021 Cholesterol Screening (Lipid Panel) 08/30/2022 Depression Screening 08/30/2022 Falls Risk Assessment 08/30/2022 Hepatitis C Screening 08/30/2022 Medicare Annual Wellness Visit 08/30/2022 Social Influencers of Health Screening 08/30/2022 COVID-19 Vaccine (3 - 2023-2 5 season) 2024 11/19/2020, 10/29/2020 Influenza Vaccine (#1) 2024 HIB Vaccines Aged Out No longer eligi ble based on patient's age to complete this topic HPV Vaccines Aged Out No longer eligi ble based on patient's age to complete this topic Hepatitis A Vaccines Aged Out No long er eligible based on patient's age to complete this topic Hepatitis B Vaccines Aged Out No long er eligible based on patient's age to complete this topic IPV Vaccines Aged Out No longer eligi ble based on patient's age to complete this topic MMR Vaccines Aged Out No longer eligi ble based on patient's age to complete this topic Meningococcal ACWY Vaccine Aged Out N o longer eligible based on patient's age to complete this topic Meningococcal B Vacine Aged Out No lo nger eligible based on patient's age to complete this topic RSV Immunization Patients Under 20 months Aged Out No longer eligible b ased on patient's age to complete this topic Varicella Vaccines Aged Out No longer eligible based on patient's age to complete this topic Procedures Procedure Name Priority Date/Time Associated Diagnosis Comments EXTERNAL ENDOSCOPY REPORT Routine 10/13/2024 5:34 PM EST PROSTATE SPECIFIC ANTIGEN DIAGNOSTIC Routine 10/13/2024 8:47 AM EST Personal history of malignant neoplasm of prostate TISSUE EXAM Routine 10/13/2024 Dysphagia, unspecified from Last 3 Months Results * External Endoscopy (10/13/2024 5:34 PM EST) Anatomical Region Laterality Modality Endoscopy us Historical Provider GI~PROCEDURE ORDERABLES F inal Result * Prostate specific antigen diagnostic (10/13/2024 8:47 AM EST) PSA <0.06 0.00 - 4.00 ng/mL LAB CHEMISTRY METHOD 10/13/2024 2:34 PM EST [facility] Blood Venous blood specimen / Unknown 10/13/2024 8:47 AM EST 10/13/2024 1:16 PM EST Narrative [facility] - 10/13/2024 2:34 PM EST The Siemens Advia Centaur Chemiluminescent Immunoassay is used. Results obtained with different assay methods or kits cannot be used interchangeably. Results cannot be interpreted as absolute evidence of the presence or absence of malignant disease. us Phu ANAYA LAB BLOOD ORDERABLES Final Resul t [facility] [address] [place] [address], [place] [phone] * Tissue Exam (10/13/2024) Final Diagnosis Esophagus, mid, biopsy: Benign esophageal squamous mucosa with no specific pathologic change identified. No intraepithelial eosinophils identified. 10/17/2024 12:24 PM [facility] Clinical Information Dysphagia R/O Eosinophilic Esophagitis 10/17/2024 12:24 PM [facility] Gross Description A. Esophagus, mid biopsy: Labeled mid esophagus biopsy . Received in formalin are two soft, white-vivas tissues, approximately measuring 0.3 cm and 0.4 cm in greatest diameters, which are wrapped in paper and submitted in toto in one cassette, two pieces, multiple levels. dvb/DG 10/17/2024 12:24 PM [facility] Disclaimer Unless otherwise specified, all tissue is 10% NB formalin fixed and paraffin embedded. 10/17/2024 12:24 PM [facility] Tissue Esophageal structure / Unknown 10/13/2024 10/16/2024 9:49 AM EST us Pio Schmitz MD LAB PATHOLOGY ORDERABLES Fi nal Result [facility] [address] [place] [address], from Last 3 Months Insurance [id number]
--- OUTSIDE RECORDS SUMMARY | 2024-12-04 12:46 | XMS_ITS | Encounter Summary ---
Author Organization [facility] Address [address] [place] [address] Care Team Providers Care Eyelet Row Marker Name Role Phone Unavailable Primary Care Provider Unavailabl e Encounter Details Date Type Department Care Team (Late st Contact Info) Description 10/16/2024 Lab Requisition [facility] - Main Lab 299 [facility] [place] [phone] Pio Schmitz MD [address] [facility] [address] [place] [address] Dysphagia, unspecified Social History Tobacco Use Types Packs/Day Years Used Date Smoking Tobacco: Never Assessed Sex and Gender Information Value Date Recorded Sex Assigned at Not on file Legal Sex Male 2:46 AM EST Gender Identity Not on file Sexual Orientation Not on file documented as of this encounter Plan of Treatment Not on file documented as of this encounter Procedures Procedure Name Priority Date/Time Associated Diagnosis Comments TISSUE EXAM Routine 10/13/2024 Dysphagia, unspecified documented in this encounter Results * Tissue Exam (10/13/2024) Final Diagnosis Esophagus, mid, biopsy: Benign esophageal squamous mucosa with no specific pathologic change identified. No intraepithelial eosinophils identified. 10/17/2024 12:24 PM EST [facility] Clinical Information Dysphagia R/O Eosinophilic Esophagitis 10/17/2024 12:24 PM EST [facility] Gross Description A. Esophagus, mid biopsy: Labeled mid esophagus biopsy . Received in formalin are two soft, white-vivas tissues, approximately measuring 0.3 cm and 0.4 cm in greatest diameters, which are wrapped in paper and submitted in toto in one cassette, two pieces, multiple levels. dvb/DG 10/17/2024 12:24 PM EST [facility] Disclaimer Unless otherwise specified, all tissue is 10% NB formalin fixed and paraffin embedded. 10/17/2024 12:24 PM EST [facility] Tissue Esophageal structure / Unknown 10/13/2024 10/16/2024 9:49 AM EST us Pio Schmitz MD LAB PATHOLOGY ORDERABLES Fi nal Result [facility] [address] [place] [address], documented in this encounter Visit Diagnoses Diagnosis Dysphagia, unspecified documented in this encounter
--- OUTSIDE RECORDS SUMMARY | 2024-12-04 12:46 | XMS_ITS | Encounter Summary ---
Author Organization [facility] Address [address] [place] [address] Care Team Providers Care Manager Implementation Name Role Phone Unavailable Primary Care Provider Unavailabl e Encounter Details Date Type Department Care Team (Late st Contact Info) Description 10/13/2024 Lab Requisition [facility] - Main Lab [address] [place] [phone] Phu Aguero PA [address] [address] Personal history of malignant neoplasm of prostate Social History Tobacco Use Types Packs/Day Years [...] Procedure Name Priority Date/Time Associated Diagnosis Comments PROSTATE SPECIFIC ANTIGEN DIAGNOSTIC Routine 10/13/2024 8:47 AM EST Personal history of malignant neoplasm of prostate documented in this encounter Results * Prostate specific antigen diagnostic (10/13/2024 8:47 AM EST) PSA <0.06 0.00 - 4.00 ng/mL LAB CHEMISTRY METHOD 10/13/2024 2:34 PM EST [facility] Blood Venous blood specimen / Unknown 10/13/2024 8:47 AM EST 10/13/2024 1:16 PM EST Narrative [facility] - 10/13/2024 2:34 PM EST The Siemens Advia Centaur Chemiluminescent Immunoassay is used. Results obtained with different assay methods or kits cannot be used interchangeably. Results cannot be interpreted as absolute evidence of the presence or absence of malignant disease. us Phu ANAYA LAB BLOOD ORDERABLES Final Resul t [facility] ([facility]) [facility] [address] [place] [address], documented in this encounter Visit Diagnoses Diagnosis Personal history of malignant neoplasm of prostate documented in this encounter
--- OUTSIDE RECORDS SUMMARY | 2024-12-04 12:46 | XMS_ITS | Continuity of Care Document ---
Author Organization [place] [facility], [facility] Address [address] [place] [address] Care Team Providers Care Machine Tech Name Role Phone CornelSANTO LEÓN Primary Care Provider [phone] Assessment No assessment recorded. Plan of Treatment Reminders Order Date Submit [...] Sensorineur al hearing loss of bilateral ears [id number] Active 2024 SYLVESTER YOST [address] [address], [place], [phone], [facility] - [facility] 13:09:22 Impacted cerumen of bilateral ears [id number] 108 Active 2024 GUERA NORTH PA-C [address] [address], [place], [phone], [facility] - [facility] 14:04:01 Problem Notes None recorded. Procedures Surgical History Date Name Laterality Status Provider Name and Address Organization Details Recorded Time Cerumen removal without microscope bilat completed GUERA NORTH PA-C [address] [facility],[address], [address], [facility] 11/30/2024 14:03:56 Comp Audio with Tymps (79421 & 82217) completed SYLVESTER YOST [address] [facility] [address], [place], [address], [facility] - [facility] 11/30/2024 13:09:17 Imaging Results None recorded. [...] Updated DateTime 11/30/2024 172.72 cm 23.1 kg/m2 56673.04 g Suzanna Tinoco [place] - [facility] 11/30/2024 13:22:01 Social History None recorded. Functional Status None recorded. Mental Status None recorded. Family History Nothing Reported. Medical History Condition Response Hearing Loss Y Past Encounters Encounter ID Performer Location Encounter Start Date Encounter Closed Date Diagnosis/Indication Diagnosis SNOMED-CT Code Diagnosis ICD10 Code Diagnosis Note [id number] GUERA NORTH PA-C [facility] [address] [place] [address] 11/30/2024 12:21:20 11/30/2024 14:00:04 Impacted cerumen of bilateral ears [id number] 438126 H61.23 Sensorineu ral hearing loss of bilateral ears 204296989 H90.3 [id number] SYLVESTER YOST [facility] [address] [place] [address] 11/30/2024 12:21:20 11/30/2024 14:00:03 Sensorineural hearing loss of bilateral ears [id number] H90.3 Audiologic al evaluation results: Right ear: [...] ID Lindsey Member ID Guarantor Name 11/30/2024 1 MEDICARE B-[place]: [facility] [employer] Sonny Nelson [id number] Sonny Morenoon 11/30/2024 2 [employer] (MEDICARE SUPPLEMENT) Sonny Morenoon [id number] Sonny Nelson Notes Date Note Type Note Provider [...] or prior otologic surgeries. GUERA NORTH PA-C [address] [place] [address], [phone], [facility] - [facility] 11/30/2024 14:06:46
== END 2024-12-04 12:20 | disposition home or self-care (01) ==
PROVIDERS: PCP Internal Medicine; Visit Provider Internal Medicine
DX: E11.42 Type 2 diabetes mellitus with diabetic polyneuropathy (principal); C61 Malignant neoplasm of prostate; J98.8 Other specified respiratory disorders; D64.9 Anemia, unspecified

== ENCOUNTER → 2024-12-04 11:11 | Outpatient (BNVA) | payer MEDICARE, OTHER, SELFPAY | PROVIDERS: PCP Internal Medicine; Visit Provider Internal Medicine | DX: E11.42 Type 2 diabetes mellitus with diabetic polyneuropathy (principal); C61 Malignant neoplasm of prostate; J98.8 Other specified respiratory disorders; D64.9 Anemia, unspecified; M25.531 Pain in right wrist; M25.532 Pain in left wrist; M25.561 Pain in right knee; M25.562 Pain in left knee; E78.5 Hyperlipidemia, unspecified; Z79.84 Long term (current) use of oral hypoglycemic drugs; Z79.899 Other long term (current) drug therapy | CPT/HCPCS: 96127; 99212 ==

== ENCOUNTER 2025-01-25 08:16 | Outpatient (REF) | payer MEDICARE, OTHER, SELFPAY ==
--- NOTE | ~2025-01-25 | US_ITS ---
CLINICAL HISTORY: E11.42 - elevated LFTS per ordering provider --- Additional Notes or Special Instru ctions: RUQ ultrasound US abdomen limited Comparison: None Findings: The pancreas is not well visualized due to overlying bowel gas. The liver is normal in size. Hepatic echogenicity is increased. No focal hepatic mass is identified. There is no intrahepatic bile duct dilatation. The common duct is 6.6 mm in diameter. The gallbladder is normal. No gallstones are seen. The main portal vein is antegrade. The right kidney is 11.2 cm in length. IMPRESSION: Increased hepatic echogenicity consistent with steatosis. This document has been electronically signed by: Mesfin Campos on 01/26/2025 09:23:35
--- OUTSIDE RECORDS SUMMARY | 2025-01-25 08:26 | XMS_ITS | Encounter Summary ---
Author Organization [facility] Address [address] [place] [address] Care Team Providers Care Life Sciences Director Name Role Phone Unavailable Primary Care Provider Unavailabl e Encounter Details Date Type Department Care Team (Late st Contact Info) Description 10/13/2024 Lab Requisition [facility] - Main Lab [address] [place] [phone] Phu Aguero PA [address] [address] Personal history of malignant neoplasm of prostate [...] LAB CHEMISTRY METHOD 10/13/2024 2:34 PM EST [facility] Blood Venous blood specimen / Unknown 10/13/2024 8:47 AM EST 10/13/2024 1:16 PM EST Narrative [facility] - 10/13/2024 2:34 PM EST The Siemens Advia Centaur Chemiluminescent Immunoassay is used. Results obtained with different assay methods or kits cannot be used interchangeably. Results cannot be interpreted as absolute evidence of the presence or absence of malignant disease. us Phu ANAYA LAB BLOOD ORDERABLES Final Resul t [facility] ([facility]) [facility] [address] [place] [address], documented in this encounter Visit Diagnoses Diagnosis Personal history of malignant neoplasm of prostate documented in this encounter
--- OUTSIDE RECORDS SUMMARY | 2025-01-25 08:26 | XMS_ITS | Clinical Summary ---
Author Organization [facility] 299 [facility] Address [address] [place] [address] Phone Care Team Providers Care Automatic Serging Machine Operator Name Role Phone Unavailable Primary Care Provider Unavailabl e Social History Tobacco Use Types Packs/Day Years [...] Vaccines (1 of 2) 1996 RSV Immunization Adult Patients (1 - 1-dose 75+ series) 2021 Cholesterol Screening (Lipid Panel) 08/30/2022 Depression Screening 08/30/2022 Falls Risk Assessment 08/30/2022 Hepatitis C Screening 08/30/2022 Medicare Annual Wellness Visit 08/30/2022 Social Influencers of Health Screening 08/30/2022 COVID-19 Vaccine (3 - 2023-2 5 season) 2024 11/19/2020, 10/29/2020 Influenza Vaccine (Season Ended) 2025 HIB Vaccines Aged Out No longer eligi [...] age to complete this topic Meningococcal B Vaccine Aged Out No l onger eligible based on patient's age to complete this topic RSV Immunization Patients Under 20 months Aged Out No longer eligible b ased on patient's age to complete this topic Varicella Vaccines Aged Out No longer eligible based on patient's age to complete this topic Insurance [employer] [id number]
--- OUTSIDE RECORDS SUMMARY | 2025-01-25 08:26 | XMS_ITS | Data Portability ---
Author Organization [facility], [facility] Address [address] [place] [address] Care Team Providers Care Trigonometry Teacher Name Role Phone JORDYN DANG Primary Care Provider Assessment No assessment recorded. Plan of Treatment Reminders Order Date Submit Date Provider Last Modified By Organization Details Last Modified Time Details Appointments INJECTION ONLY 2024 08:15A M Kalyn Currie PA-C Not available Not available Not available INJECTION ONLY 2024 08:00A Jayson Currie PA-C Not available Not available Not available RECHECK 2024 08:00A Jayson Currie PA-C Not available Not available Not available Lab None recorded. Referral None recorded. Procedures None recorded. Surgeries None recorded. Imaging XR, knee, 4 or more view - room 209 rt knee 4v cw 2023 024 [email or web address] [facility], [address], [facility] [address], [place], [address], 07/11/2024 14:51:52 Medication Orders None recorded. Patient TargetsNo targets recorded. Patient InstructionsNo instructions recorded. Reason for Referral None Reported. Results Created Date Observation Date Name Description Value Unit Range Abnormal Flag Note LastModifiedBy Organization Detail LastModifiedTime 06/20/2006/20/2024 XR, knee, 4 or more view http:/ [email or web address] ?Encry pted=s hAaTro YD8dLq bEUv6g %2BXZw aYqtaq 0bqfl% 2Fg9IQ a4ajBk vP9nXo QUaueC m3YtLR FvZlgJ JJ8mAn HZtai3 3p8865 AC0Kqa nqMUqa nKiQtr MwF INTER[facility] [address], [place], [address], 06/20/2024 10:41:36 06/20/20 24 06/20/2024 XR, knee, 4 or more view [email or web address] ?Encry pted=s hAaTro YD8dLq bEUv6g %2BXZw aYqtaq 0bqfl% 2Fg9IQ a4ajBk vP9nXo QUaueC m3YtLR FvZlgJ JJ8mAn HZtai3 5p7486 AC0Kqa nqMUqa nKiQtr MwF [facility] [address], [place], [address], 06/20/2024 10:41:38 Result Notes None recorded. Problems Name Problem SNOMED Code Status Onset Date Resolution Date Notes Provider Name and Address Organization Details Recorded Time Pain of right knee joint 7327053490773 00 Active 2023 kaci landaverde [facility] 4 10:35:01 Osteoarthri tis of right knee joint 4753836440091 00 Active 2024 Jordyn Cunha PA-C [address], [place], [address], [facility] 5 09:22:38 Osteoarthri tis of left knee joint 5216585846899 09 Active 2024 Kalyn Currie PA-C [address], [place], [address], [facility] 5 21:55:52 Problem Notes None recorded. Procedures Surgical History Date Name Laterality Status Provider Name and Address Organization Details Recorded Time 5 Knee Kenalog 1cc L/R completed Kalyn Currie PA-C [address], [place], [address], [facility] 01/15/2025 21:55:56 5 Knee Kenalog 1cc L/R completed Jordyn Cunha PA-C [address] [facility], [place], [address], [facility] 12/13/2024 09:22:32 5 Knee Kenalog 1cc L/R completed Kalyn Currie PA-C [address] [facility], [place], [address], [facility] 10/23/2024 20:36:23 4 Sports Knee 4&1 completed Kalyn Currie PA-C [address] [facility], [place], [address], [facility] 09/22/2024 08:36:07 4 Sports Knee 4&1 completed Kalyn Currie PA-C [address] [facility], [place], [address], [facility] 06/20/2024 12:26:45 Imaging Results Imaging Date Name Status LastModified by Organiz ation Details LastModified Time 06/20/2024 XR, knee, 4 or more view completed [facility] [address] [place] [address], [address], 06/20/2024 10:41:36 06/20/2024 XR, knee, 4 or more view completed [facility] [address] [facility], [place], [address], 06/20/2024 10:41:38 Procedure Notes None recorded. Medical Equipment None Reported. Allergies No known drug allergies Medications Name Sig Start Date Stop Date Status Note LastModified by Organization Details LastModified Time atorvastati n 10 mg tablet TAKE 1 TABLET BY MOUTH EVERY DAY active Not Available Not Available No t Available azithromyci n 250 mg tablet TK 2 TS PO ON DAY 1, THEN TK 1 T PO D FOR 4 DAYS active Not Available Not Available No t Available glipizide ER 10 mg tablet, extended release 24 hr TAKE 2 TABLETS BY MOUTH EVERY DAY active Not Available Not Available No t Available glipizide 10 mg tablet TAKE 1 TABLET BY MOUTH EVERY DAY active Not Available Not Available No t Available prednisone 20 mg tablet TAKE 2 TABLETS BY MOUTH DAILY active Not Available Not Available No t Available cyanocobala min (vit B-12) 1,000 mcg tablet TAKE 1 TABLET BY MOUTH EVERY DAY active Not Available Not Available No t Available Vitamin C 1,000 mg tablet Take by oral route. active Not Available Not Available No t Available tamsulosin 0.4 mg capsule TAKE 1 CAPSULE BY MOUTH EVERY DAY active Not Available Not Available No t Available metformin 1,000 mg tablet TAKE 1 TABLET BY MOUTH TWICE A DAY active Not Available Not Available No t Available betamethaso ne dipropionat e 0.05 % topical cream APPLY TO ITCHY RASH ON BACK TWICE DAILY FOR UP TO 2 WEEKS NEEDED active Not Available Not Available No t Available gabapentin 100 mg capsule TAKE 1 TO 2 CAPSULES BY MOUTH THREE TIMES DAILY active Not Available Not Available No t Available pioglitazon e 30 mg tablet TAKE 1 TABLET BY MOUTH DAILY active Not Available Not Available No t Available amoxicillin 875 mg-potassiu m clavulanate 125 mg tablet TAKE 1 TABLET BY MOUTH EVERY 12 HOURS FOR 7 DAYS 06/20 completed Not Available Not Available Not Available Vitamin D3 10 mcg (400 unit) capsule Take by oral route. active Not Available Not Available No t Available vitamin B12 2,500 mcg-folic acid 400 mcg disintegrat ing tablet Take by oral route. 06/20 completed Not Available Not Available Not Available Vitals Date Recorded Body height Body mass index (BMI) Body weight Provider Name and Address Organization Details Last Updated DateTime 06/20/2024 172.72 cm 23.3 kg/m2 22231.63 g [facility] 06/20/2024 10:34:25 Date Recorded Body height Body mass index (BMI) Body weight Provider Name and Address Organization Details Last Updated DateTime 09/22/2024 172.72 cm 23.3 kg/m2 17836.63 g [facility] 09/22/2024 08:44:38 Date Recorded Body height Body mass index (BMI) Body weight Provider Name and Address Organization Details Last Updated DateTime 10/24/2024 172.72 cm 23.3 kg/m2 70000.63 g [place] [facility] 10/24/2024 10:22:50 Date Recorded Body height Body mass index (BMI) Body weight Provider Name and Address Organization Details Last Updated DateTime 12/13/2024 172.72 cm 23.4 kg/m2 60966.22 g Erin Lala [facility] 12/13/2024 09:26:20 Date Recorded Body height Body mass index (BMI) Body weight Provider Name and Address Organization Details Last Updated DateTime 01/16/2025 172.72 cm 23.4 kg/m2 00893.22 g [facility] 01/16/2025 11:16:19 Social History None recorded. Functional Status None recorded. Mental Status None recorded. Family History Nothing Reported. Medical History No medical history recorded. Past Encounters Encounter ID Performer Location Encounter Start Date Encounter Closed Date Diagnosis/Indication Diagnosis SNOMED-CT Code Diagnosis ICD10 Code Diagnosis Note [id number] [facility]yn [facility]rie [facility] [address] [address] [place] [address] 06/20/2024 10:07:04 07/11/2024 14:51:51 Pain of right knee joint 7977031714 17401 M25.561 Osteoarthr itis of right knee joint 5053711691 61829 M17.11 [id number] [facility] [address] [place] [address] 09/22/2024 08:39:33 10/09/2024 15:21:24 Osteoarthritis of right knee joint 2336591263 30177 M17.11 [id number] [facility] [address] [place] [address] 10/24/2024 09:34:14 11/01/2024 12:44:48 Osteoarthritis of left knee joint 3646640515 13521 M17.12 [id number] [facility] [address] [place] [address] 12/13/2024 09:20:37 12/28/2024 10:25:14 Osteoarthritis of right knee joint 5949559086 24771 M17.11 [id number] HERVE [facility] [place] [address] 01/16/2025 10:35:11 01/24/2025 09:13:57 Osteoarthritis of left knee joint 8712856177 03772 M17.12 Health Concerns Section Related Observation LastModified by Organization Detai ls LastModified Time None Recorded Concern Status LastModified by Organization Details LastModified Time None Recorded Advance Directives Directive None Recorded Payers Encounter Date Sequence Insurance Name Policy Number Policy Lindsey Covered Member ID Lindsey Member ID Guarantor Name 06/20/2024 1 MEDICARE [place]: [employer] Sonny L Nelson [id number] Sonny Nelson 06/20/2024 2 [employer] (MEDICARE SUPPLEMENT) Sonny Nelson [id number] Sonny Nelson 09/22/2024 1 MEDICARE [place]: [employer] Sonny L Nelson [id number] Sonny Nelson 09/22/2024 2 [employer] (MEDICARE SUPPLEMENT) Sonny Nelson [id number] Sonny Nelson 10/24/2024 1 MEDICARE [place]: [employer] Sonny L Nelson [id number] Sonny Nelson 10/24/2024 2 [employer] (MEDICARE SUPPLEMENT) Sonny Nelson [id number] Sonny Nelson 12/13/2024 1 MEDICARE [place]: [employer] Sonny L Nelson [id number] Sonny Nelson 12/13/2024 2 [employer] (MEDICARE SUPPLEMENT) Sonny Nelson [id number] Sonny Nelson 01/16/2025 1 [place] [employer] Sonny L Nelson [id number] Sonny Nelson 01/16/2025 2 [employer] (MEDICARE SUPPLEMENT) Sonny Nelson [id number] Sonny Nelson Notes Date Note Type Note Provider Name and Address Organization Details Recorded Time 4 text/html I am seeing the patient today under the supervision of Dr. Patricio who was available but who did not see the patient. HPI: Sonny presents to the office today for an evaluation of his right knee. He has been experiencing knee pain for quite some time. He denies recent trauma. He describes his pain as being along the medial aspect of the right knee. Symptoms are worse with weightbearing activities. He also has some minor discomfort in the left knee. He denies any instability. He currently is not taking any medication for his symptoms. He is here today for treatment recommendations. PMH/PSH/MEDS/ALL/FMH/SOC HX/ROS are reviewed in detail per my medical intake sheet. General Exam: Vital signs are as noted below Mental status: Alert and lucid. Normal insight, affect and grooming. 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 No spasticity or clonus noted. EXAMINATION: The patient is well appearing and in no apparent distress. Alert and oriented x3. Gait is antalgic. {{Right knee reveals* Left knee reveals Bilateral knees reveal}} {{varus* valgus no}} deformity upon inspection. No joint effusion, edema, erythema, ecchymosis, or lesions. Neurovascularly intact. Tenderness present along the {{medial* lateral medial and lateral}} joint line. ROM is from 0-120 degrees. Patellofemoral crepitus noted. Stability intact with anterior, posterior, and varus/valgus stress at both 0 and 30 degrees of flexion. 5/5 strength. Calf/leg compartments soft and compressible. Contralateral knee reveals no deformity upon inspection. No joint effusion, edema, erythema, ecchymosis, or lesions. Neurovascularly intact. No localized tenderness. ROM is full and pain free. No crepitus noted. Stability intact with anterior, posterior, and varus/valgus stress at both 0 and 30 degrees of flexion. Special testing negative including Steinmann's, flexion pinch, and patella grind maneuvers. 5/5 strength. Calf/leg compartments soft and compressible. Bilateral hip exam reveals painless passive range of motion. No instability. 5/5 strength. X-rays ordered, obtained and reviewed at [facility] today include an AP standing, Claudio, and merchant view of bilateral knees. Lateral view of {{right* left}} knee. Images reveal severe end-stage osteoarthritis of the right medial compartment with kexo-nr-ndol articulation, subchondral sclerosis, and osteophyte formation. There is moderate osteoarthritis in the patellofemoral compartments. No acute fracture or lesion. IMPRESSION: {{Right* Left Bilateral}} knee end-stage osteoarthritis PLAN: The patient was thoroughly counseled today regarding their knee condition, its natural history, and conservative versus surgical treatment options. The patient is interested in receiving an injection with corticosteroid. {{The right knee was* The left knee was Bilateral knees were}} prepped sterilely and an injection was administered utilizing 40mg of Kenalog and 4cc of 0.25% Marcaine. The patient tolerated the procedure well. Post-injection precautions were discussed. Recommended avoiding strenuous activity over the next 24-48 hours. Encouraged elevation of the leg, applying ice, and taking over the counter medication as needed. The patient is aware that the injection can be repeated as often as every 3 months. We also discussed viscosupplementation. The patient will consider these injections if cortisone is not effective. He is aware that the only cure for his condition is a total knee arthroplasty. He is hoping to avoid surgery. All questions answered. Kalyn Currie PA-C [address] [place] [address] [address], [place], [address], [facility] 06/20/2024 12:27:48 4 text/html I am seeing the patient today under the supervision of Dr. Lee who was available but who did not see the patient. HPI: Sonny presents to the office today for a recheck of his right knee. He was diagnosed with right knee end-stage osteoarthritis at his last visit. A cortisone injection was administered at that time. He indicates that the injection provided him with excellent pain relief. He only has some minor discomfort in his knee at the end of the day. PMH/PSH/MEDS/ALL/FMH/SOC HX/ROS are reviewed in detail per my medical intake sheet. General Exam: Vital signs are as noted below Mental status: Alert and lucid. Normal insight, affect and grooming. 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 No spasticity or clonus noted. EXAMINATION: The patient is well appearing and in no apparent distress. Alert and oriented x3. Gait is antalgic. {{Right knee reveals* Left knee reveals Bilateral knees reveal}} {{varus* valgus no}} deformity upon inspection. No joint effusion, edema, erythema, ecchymosis, or lesions. Neurovascularly intact. Tenderness present along the {{medial* lateral medial and lateral}} joint line. ROM is from 0-120 degrees. Patellofemoral crepitus noted. Stability intact with anterior, posterior, and varus/valgus stress at both 0 and 30 degrees of flexion. 5/5 strength. Calf/leg compartments soft and compressible. Contralateral knee reveals no deformity upon inspection. No joint effusion, edema, erythema, ecchymosis, or lesions. Neurovascularly intact. No localized tenderness. ROM is full and pain free. No crepitus noted. Stability intact with anterior, posterior, and varus/valgus stress at both 0 and 30 degrees of flexion. Special testing negative including Steinmann's, flexion pinch, and patella grind maneuvers. 5/5 strength. Calf/leg compartments soft and compressible. Bilateral hip exam reveals painless passive range of motion. No instability. 5/5 strength. X-rays ordered, obtained and reviewed at [facility] previously include an AP standing, Claudio, and merchant view of bilateral knees. Lateral view of {{right* left}} knee. Images reveal severe end-stage osteoarthritis of the right medial compartment with cqca-hs-mnxv articulation, subchondral sclerosis, and osteophyte formation. There is moderate osteoarthritis in the patellofemoral compartments. No acute fracture or lesion. IMPRESSION: {{Right* Left Bilateral}} knee end-stage osteoarthritis PLAN: The patient was thoroughly counseled today regarding their knee condition, its natural history, and conservative versus surgical treatment options. The patient is interested in receiving an injection with corticosteroid. {{The right knee was* The left knee was Bilateral knees were}} prepped sterilely and an injection was administered utilizing 40mg of Kenalog and 4cc of 0.25% Marcaine. The patient tolerated the procedure well. Post-injection precautions were discussed. Recommended avoiding strenuous activity over the next 24-48 hours. Encouraged elevation of the leg, applying ice, and taking over the counter medication as needed. The patient is aware that the injection can be repeated as often as every 3 months. We also discussed viscosupplementation. The patient will consider these injections if cortisone becomes ineffective. He is aware that the only cure for his condition is a total knee arthroplasty. He is hoping to avoid surgery. He would also like to schedule an appointment for a left knee cortisone injection. We did not administer a left knee injection today secondary to his diabetes. We will schedule him for a separate appointment. All questions answered. Kalyn Currie PA-C [address], [place], [address], [facility] 09/22/2024 09:06:56 5 text/html I am seeing the patient today under the supervision of Dr. Saravia who was available but who did not see the patient. HPI: Patient presenting today with known osteoarthritis of {{the right knee the left knee* bilateral knees}}. Has been responding favorably to conservative treatment. Here today for a cortisone injection. Denies recent injury. No new systemic complaints. Past family, medical, social history and review of systems has been reviewed, updated, and is located in the patient? s chart. Examination: Examination of {{the right knee the left knee* bilateral knees}} reveals no effusion, erythema, or warmth. Injection site benign. Decreased range of motion. Point tender {{medial* lateral}} joint line. Calf is soft and nontender. 5/5 strength knee flexion and extension. Impression: {{Right Left* Bilateral}} knee osteoarthritis Plan: The patient was thoroughly counseled today regarding their knee condition, its natural history, and conservative versus surgical treatment options. The patient is interested in receiving an injection with corticosteroid. {{The right knee was The left knee was* Bilateral knees were}} prepped sterilely and an injection was administered utilizing 40mg of Kenalog and 4cc of 0.25% Marcaine. The patient tolerated the procedure well. Post-injection precautions were discussed. Recommended avoiding strenuous activity over the next 24-48 hours. Encouraged elevation of the leg, applying ice, and taking over the counter medication as needed. The patient is aware that the injection can be repeated as often as every 3 months. Kalyn Currie PA-C [address], [place], [address], [facility] 10/24/2024 16:13:12 5 text/html I am seeing the patient today under the supervision of {{Erin montenegro Huntley#}} who was available but who did not see the patient. HPI:Patient presents today follow-up regarding their {{Left Right* Bilateral}} knee. Previous injection 09/22/25 gave good relief for about 2 months. Pain bothersome at night, throbbing. Past family, medical, social history and review of systems has been reviewed, updated and is located in the patient? s chart. Examination:The patient is well appearing and in no apparent distress. Alert and oriented x3. Gait is symmetric. Examination of the {{Left Right* Bilateral}} knee reveals no evidence of any edema, erythema, or warmth. Range of motion of the knee 0-120 with mild discomfort at the end ranges. Mild effusion. Does have some tenderness to palpation about the medial hemijoint line. Patellofemoral crepitus is noted. Calf is supple and nontender. Neurovascularly intact distally. Impression:{{Left Right* Bilateral}} Knee osteoarthritis Plan:We discussed the role of conservative management including medications, physical therapy, injection and bracing. At this point the patient elected to proceed with repeat cortisone injection. Please see procedure note. They will follow up with us as scheduled. All of their concerns were addressed and they understand and agree with the plan. Speech recognition automobile service writer software was used to create portions of this document. An attempt at proofreading has been made to minimize errors. Please call for corrections. Jordyn Cunha PA-C [address] [place] [address], [place], [address], [facility] 12/13/2024 09:42:34 5 text/html I am seeing the patient today under the supervision of Dr. Saravia who was available but who did not see the patient. HPI: Patient presenting today with known osteoarthritis of {{the right knee the left knee* bilateral knees}}. Has been responding favorably to conservative treatment. Here today for a cortisone injection. Denies recent injury. No new systemic complaints. He is scheduled for a right knee cortisone injection in February. His glucose levels have been controlled. Continues to take over the counter medication for pain. Past family, medical, social history and review of systems has been reviewed, updated, and is located in the patient? s chart. Examination: Examination of {{the right knee the left knee* bilateral knees}} reveals no effusion, erythema, or warmth. Injection site benign. Decreased range of motion. Point tender {{medial* lateral}} joint line. Calf is soft and nontender. 5/5 strength knee flexion and extension. Impression: {{Right Left* Bilateral}} knee osteoarthritis Plan: The patient was thoroughly counseled today regarding their knee condition, its natural history, and conservative versus surgical treatment options. The patient is interested in receiving an injection with corticosteroid. {{The right knee was The left knee was* Bilateral knees were}} prepped sterilely and an injection was administered utilizing 40mg of Kenalog and 4cc of 0.25% Marcaine. The patient tolerated the procedure well. Post-injection precautions were discussed. Recommended avoiding strenuous activity over the next 24-48 hours. Encouraged elevation of the leg, applying ice, and taking over the counter medication as needed. The patient is aware that the injection can be repeated as often as every 3 months. He would like to proceed with viscosupplementation for bilateral knees. We will obtain authorization. All questions answered. Kalyn Currie PA-C [address] [facility] [address], [place], [address], [facility] 01/16/2025 15:34:38
--- OUTSIDE RECORDS SUMMARY | 2025-01-25 08:26 | XMS_ITS | Data Portability ---
Author Organization [place] [facility], Allergy Address [address] [address] Care Team Providers Care Adviser Sales Name Role Phone SANTO DANG Primary Care Provider Assessment Encounter Date Assessment Date Assessment LastModified [...] amplification and medical clearance was provided today. [email or web address] Not available 11/30/2024 14:05:26 Plan of Treatment [...] Sensorineur al hearing loss of bilateral ears [id number] Active 2024 SYLVESTER YOST 100 [facility],[place] [place] [address], [place], [phone], [facility] 13:09:22 Impacted cerumen of bilateral ears [id number] 108 Active 2024 GUERA NORTH PA-C 100 [facility],[place] [address], [place], [address], [facility] 14:04:01 Problem Notes None recorded. Procedures Surgical History Date Name Laterality Status Provider Name and Address Organization Details Recorded Time Cerumen removal without microscope bilat completed GUERA NORTH PA-C 100 [facility],[address], [address], [facility] 11/30/2024 14:03:56 Comp Audio with Tymps (11719 & 55014) completed SYLVESTER YOST 100 [facility],[address] [address], [place], [address], [facility] 11/30/2024 13:09:17 Imaging Results Imaging Date [...] Updated DateTime 11/30/2024 172.72 cm 23.1 kg/m2 53022.04 g Suzanna Tinoco [place] - [facility] 11/30/2024 13:22:01 Social History None recorded. Functional Status None recorded. Mental Status None recorded. Family History Nothing Reported. Medical History Condition Response Hearing Loss Y Past Encounters Encounter ID Performer Location Encounter Start Date Encounter Closed Date Diagnosis/Indication Diagnosis SNOMED-CT Code Diagnosis ICD10 Code Diagnosis Note [id number] GUERA NORTH PA-C [facility] [address] [address] 11/30/2024 12:21:20 11/30/2024 14:00:04 Impacted cerumen of bilateral ears [id number] 280580 H61.23 Sensorineu ral hearing loss of bilateral ears 210022153 H90.3 [id number] SYLVESTER YOST [facility] [address] [address] 11/30/2024 12:21:20 11/30/2024 14:00:03 Sensorineural hearing loss of bilateral ears [id number] H90.3 Audiologic al evaluation results: Right ear: [...] Lindsey Member ID Guarantor Name 11/30/2024 2 [facility] Sonny Morenoon [id number] Sonny Morenoon 11/30/2024 1 MEDICARE B-[facility]: [facility] [employer] Sonny Belleterson [id number] Sonny Lewis Nelson 11/30/2024 1 MEDICARE B-VA: [facility] Sonny Lewis Nelson [id number] Sonny Lewis Nelson 11/30/2024 2 [employer] (MEDICARE SUPPLEMENT) Sonny Lewis Nelson [id number] Sonny Lewis Nelson Notes Date Note Type [...] or prior otologic surgeries. GUERA NORTH PA-C [address] [place] [address], [place], [address], [place] [facility] 11/30/2024 14:06:46
--- OUTSIDE RECORDS SUMMARY | 2025-01-25 08:27 | XMS_ITS | Encounter Summary ---
Author Organization [facility] Address [address] [place] [address] Care Team Providers Care Measurement Analyst Name Role Phone Unavailable Primary Care Provider Unavailabl e Encounter Details Date Type Department Care Team (Late st Contact Info) Description 10/16/2024 Lab Requisition [facility] - Main Lab 299 [facility] [place] [phone] Pio Schmitz MD 229 [facility] [address] [place] [address] Dysphagia, unspecified Social History Tobacco Use Types [...] intraepithelial eosinophils identified. 10/17/2024 12:24 PM EST [facility] Clinical Information Dysphagia R/O Eosinophilic Esophagitis 10/17/2024 12:24 PM EST [facility] Gross Description A. Esophagus, mid biopsy: Labeled mid esophagus biopsy . Received in formalin are two soft, white-vivas tissues, approximately measuring 0.3 cm and 0.4 cm in greatest diameters, which are wrapped in paper and submitted in toto in one cassette, two pieces, multiple levels. dvb/DG 10/17/2024 12:24 PM EST [facility] Disclaimer Unless otherwise specified, all tissue is 10% NB formalin fixed and paraffin embedded. 10/17/2024 12:24 PM EST [facility] Tissue Esophageal structure / Unknown 10/13/2024 10/16/2024 9:49 AM EST us Pio Schmitz MD LAB PATHOLOGY ORDERABLES Fi nal Result [facility] [address] [place] [address], documented in this encounter Visit Diagnoses Diagnosis Dysphagia, unspecified documented in this encounter
== END 2025-01-25 08:17 | disposition home or self-care (01) ==
LOC: HO.US 08:16
PROVIDERS: PCP Internal Medicine; Visit Provider Internal Medicine
DX: E11.42 Type 2 diabetes mellitus with diabetic polyneuropathy (principal)
CPT/HCPCS: 76705

== ENCOUNTER → 2025-01-25 08:18 | Outpatient (BNV) | payer MEDICARE, OTHER, SELFPAY | PROVIDERS: PCP Internal Medicine; Visit Provider Radiology Vascular & Interventional Radiology | DX: K76.0 Fatty (change of) liver, not elsewhere classified (principal); R74.01 Elevation of levels of liver transaminase levels | CPT/HCPCS: 76705 ==

== ENCOUNTER 2025-03-05 11:33 | Outpatient (REF) | payer MEDICARE, OTHER, SELFPAY ==
--- OUTSIDE RECORDS SUMMARY | 2025-03-05 13:14 | XMS_ITS | Clinical Summary ---
Author Organization [facility] 299 [facility] Address [address] [place] [address] Phone Care Team Providers Care Mine Administrator Supervisor Name Role Phone Unavailable Primary Care Provider [...] to complete this topic Insurance [facility] [place]
[2025-03-05 14:12] LABS: MANUAL DIFF FLAG NO
[2025-03-05 14:28] LABS: Basophils Absolute Auto 0.1 X10*3/uL (0.0-0.2); Basophils Percent Auto 0.7 % (0-2); Eosinophils Absolute Auto 0.3 X10*3/uL (0.0-0.4); Eosinophils Percent Auto 3.4 % (0-4); Hematocrit 34.1 % (42.0-52.0); Hemoglobin 11.2 g/dl (14.0-18.0); Imm Gran Abs Auto 0.02 X10*3/uL (0.00-0.03); Imm Gran Pct Auto 0.3 % (0.0-0.4); Lymphocytes Absolute Auto 1.2 X10*3/uL (1.2-4.9); Lymphocytes Percent Auto 16.6 % (20-40); Mean Corpuscular HGB Conc 32.8 g/dl (31.0-36.0); Mean Corpuscular Hemoglobin 30.4 pg (27.0-33.0); Mean Corpuscular Volume 92.7 fL (80.0-98.0); Mean Platelet Volume 11.1 fL (9.4-12.4); Monocytes Absolute Auto 0.5 X10*3/uL (0.1-1.2); Monocytes Percent Auto 6.1 % (2-11); Neutrophils Absolute Auto 5.4 x10*3/uL (2.0-8.3); Neutrophils Percent Auto 72.9 % (45-73); Platelet Count 211 X10*3/uL (160-400); Red Blood Count 3.68 X10*6/uL (4.60-5.80); Red Cell Distribution Width 15.6 % (11.0-16.0); White Blood Count 7.4 X10*3/uL (4.8-10.8)
[2025-03-05 14:43] LABS: Estimated Average Glucose 203 mg/dL; Hemoglobin A1c % 8.7 % (<6.0)
[2025-03-05 14:44] LABS: Iron 63 mcg/dL (45-160); Percent Iron Saturation 18 % (15-50); Total Iron Binding Capacity 349 mcg/dL (228-428); Unsaturated Iron Binding 286 ug/dL
== END 2025-03-05 11:34 | disposition home or self-care (01) ==
LOC: HO.WFDLDS 11:33
PROVIDERS: Visit Provider Internal Medicine
DX: D64.9 Anemia, unspecified (principal); E11.42 Type 2 diabetes mellitus with diabetic polyneuropathy
CPT/HCPCS: 83036; 83540; 85025

== ENCOUNTER 2025-03-13 08:48 | Outpatient (AMB) | payer MEDICARE, OTHER, SELFPAY ==
--- NOTE | 2025-03-13 08:53 | MHC.PC.OV ---
Vital Signs 03/13/25 08:59 Height 5 ft 8 in Weight 153 lb 8 oz BMI 23.3 BP 138/54 L Blood Pressure Location Rt brachial Position Sitting Respiration 14 Pulse 73 Pulse Source Pulse Oximeter Temp 98.1 F Temp Source Oral Pulse Oximetry (%) 93 Oxygen Delivery Method Room Air Intake Visit Reasons: DM Intake Note: Diabetes follow up Android Platform Developer Required: No Allergies No Known Allergies Allergy (Verified 03/13/25 08:54) Tobacco use date assessed: 03/13/25 Fall risk assessment: 2 + Falls in past year Last assessed Fall Risk: 03/13/25 Dental Screening Dental Screen Date: 03/13/25 Did you have a dental visit in the last 12 months?: Yes Did you have a dental problem in the last 6 months where you did not have access to dental care?: No Was dental information given to patient?: Patient has dentist HPI HPI Comments History of Present Illness Details 79 year old male with a past medical history of diabetes, arthritis, hyperlipidemia, prostate cancer for follow up Diabetes: On metformin 1000mg twice daily, glipizide, actos 30mg. A1C 8.7 frp, 9.0%. Stable bilateral foot neuropathy. Annual eye exams with Dr Alba. ED on cialis. ordered jardiance last visit was 600$ so did not picket [employer]. Declines insulin, glp CV: on lipitor. Denies chest pain. Prostate Ca-follows with urology, rad onc. Finished radiation and ADT. Follows with oncology. Endorses increased nocturia. current flomax 0.4. Sometimes snores. OA:Bilateral wrist pain, bilateral knee pain. Using prn CBD. Esophageal stricture: Follows with Dr Schmitz. Once annually Anemia is stable. Smear reassuring. Is having recent night sweats. No recent weight loss. Denies LN, cough. Colonoscopy 2020. ROS see HPI PHYSICAL EXAM: GENERAL: Alert and oriented x 3. NAD EYES: EOMI. Anicteric. HENT: Moist mucous membranes. No scleral icterus. No cervical lymphadenopathy. LUNGS: Clear to auscultation bilaterally. CARDIOVASCULAR: Regular rate and rhythm. No murmur. No JVD. ABDOMEN: Soft, non-tender +bs EXTREMITIES: trace b/l edema. Non-tender. SKIN: No rashes or lesions. Warm. NEUROLOGIC: No focal neurological deficits. CN II-XII grossly intact PSYCHIATRIC: Cooperative. Appropriate mood and affect [facility] Medical History Shoulder separation Vitamin B12 deficiency Type 2 diabetes mellitus Prostate cancer Hypercholesterolemia Hemorrhoids Esophageal stricture Elevated PSA Elevated MCV Arthritis Surgical History History of eye surgery History of elbow surgery History of vasectomy History of colonoscopy Family History Mother Alzheimer's dementia Father Cancer Brother Diabetes Social History (Updated 03/13/25 @ 09:03 by Marisa Seymour CMA) Household Members: Spouse and Children Housing: House Are you a primary home health care respiratory therapist to a significant other at home: No Do you presently have visiting nurse or other home services: No 75 years or older and lives alone: No Alcohol intake: current Alcohol intake frequency: 0-2 drinks per day Alcohol type: wine Patient Tobacco Use Status: Former Tobacco user Cigarette Packs Per Day: 1 Years Smoked: 4 e-Cigarette/Vaping Use: Never Used service: Yes Current occupational status: employed Current occupation: [employer]- [employer] Current occupational exposures/hazards: No Cognitive needs: No Hearing needs: Yes Vision needs: No Questionnaire Thrive Questionnaire Date Thrive assessed: 11/27/24 I am a: Patient What is your living situation today?: I have a steady place to live Within the past 12 months, did the food you bought not last and you didn't have the money to get more?: Never true Within the past 12 months, did you worry whether your food would run out before you got money to buy more?: Never true Do you have trouble paying for medicines?: No Do you have trouble getting transportation to medical appointments?: No Do you have trouble paying your heating and electricity bill?: No Do you have trouble taking care of your child, family member or friend?: No Do you have trouble with day-to-day activities such as bathing, preparing meals, shopping, managing finances, etc.?: No Are you currently unemployed and looking for a job?: No Are you interested in more education?: No Please select the resources that you would like help with: None Currently or been in a relationship where the following occur: No concerns reported THRIVE Score: 0 AUDIT C Alcohol Use Questionnaire (AUDIT-C) 1. How often do you have a drink containing alcohol?: 4 or more times a week 2. How many drinks containing alcohol do you have on a typical day when you are drinking?: 1 or 2 3. How often do you have six or more drinks on one occasion?: Never Total Score: 4 ASHLI-7 AMB Questionnaire ASHLI-7 Date ASHLI - 7 assessed: 12/04/24 Source: Developed by Drs. Lior Lynn, Khadra Najera, Tim Hammer and colleagues, with an educational carol from [employer]. Physical exam (Primary Care) Vital Signs: Last Vital Signs Temp 98.1 F 03/13/25 08:59 Pulse 73 03/13/25 08:59 Resp 14 03/13/25 08:59 BP 138/54 L 03/13/25 08:59 Pulse Ox 93 03/13/25 08:59 Oxygen Delivery Method Room Air 03/13/25 08:59 BMI result Body Mass Index 23.3 Tobacco/Smoking Status: Tobacco use Status Tobacco use date assessed 03/13/25 03/13/25 09:04 Patient Tobacco Use Status Former Tobacco user 03/13/25 09:04 e-Cigarette/Vaping Use Never Used 03/13/25 09:04 Thrive Assessment: Date of Thrive Assessment Date Thrive assessed 11/27/24 03/13/25 09:04 Currently or been in a relationship where the following occur: No concerns reported Coding Level of Care Code Est Pt Level 4 (48956) Complex EM visit Add On G2211 Diagnoses Type 2 diabetes mellitus with diabetic polyneuropathy, without long-term current use of insulin E11.42 Diabetes mellitus fdc insulin use: without terminal block assembler use Diabetes mellitus complication status: with neurologic complications Diabetes mellitus complication detail: with polyneuropathy Prostate cancer C61 Anemia, unspecified type D64.9 Anemia type: unspecified type Hypercholesterolemia E78.00 Night sweats R61 Nocturia R35.1 Assessment & Plan Assessment & Plan (1) Type 2 diabetes mellitus: Code(s): E11.9 - Type 2 diabetes mellitus without complications Category: Medical Qualifiers: Diabetes mellitus terminal block assembler insulin use: without fdc use Diabetes mellitus complication status: with neurologic complications Diabetes mellitus complication detail: with polyneuropathy Qualified Code(s): E11.42 - Type 2 diabetes mellitus with diabetic polyneuropathy (2) Prostate cancer: Code(s): C61 - Malignant neoplasm of prostate Category: Medical (3) Anemia: Code(s): D64.9 - Anemia, unspecified Category: Medical Qualifiers: Anemia type: unspecified type Qualified Code(s): D64.9 - Anemia, unspecified (4) Hypercholesterolemia: Code(s): E78.00 - Pure hypercholesterolemia, unspecified Category: Medical (5) Night sweats: Code(s): R61 - Generalized hyperhidrosis Category: Medical (6) Nocturia: Code(s): R35.1 - Nocturia Category: Medical Plan DM-uncontrolled. Cut out sweets. ?nightime hypoglycemia. He will check BG at this time. Start farxiga if approved. Declines injectables Night sweats. Check labs Nocturia-increase flomax to 0.8. Declines sleep study Orders: Orders Complete Blood Count Auto Diff 3 Months C61 - Malignant neoplasm of prostate, E11.42 - Type 2 diabetes mellitus with diabetic polyneuropathy, E78.00 - Pure hypercholesterolemia, unspecified Lipid Panel 3 Months C61 - Malignant neoplasm of prostate, E11.42 - Type 2 diabetes mellitus with diabetic polyneuropathy, E78.00 - Pure hypercholesterolemia, unspecified Vitamin B12 and Folate 3 Months C61 - Malignant neoplasm of prostate, E11.42 - Type 2 diabetes mellitus with diabetic polyneuropathy, E78.00 - Pure hypercholesterolemia, unspecified Microalbumin, Random (w Creat) 3 Months C61 - Malignant neoplasm of prostate, E11.42 - Type 2 diabetes mellitus with diabetic polyneuropathy, E78.00 - Pure hypercholesterolemia, unspecified Comprehensive Met. Panel 3 Months C61 - Malignant neoplasm of prostate, E11.42 - Type 2 diabetes mellitus with diabetic polyneuropathy, E78.00 - Pure hypercholesterolemia, unspecified TSH reflex Free T4 3 Months C61 - Malignant neoplasm of prostate, E11.42 - Type 2 diabetes mellitus with diabetic polyneuropathy, E78.00 - Pure hypercholesterolemia, unspecified T Spot TB 3 Months C61 - Malignant neoplasm of prostate, E11.42 - Type 2 diabetes mellitus with diabetic polyneuropathy, E78.00 - Pure hypercholesterolemia, unspecified Medications: New Farxiga (dapagliflozin propanediol) 10 mg PO DAILY 90 tabs 3RF NS Farxiga (dapagliflozin propanediol) 10 mg PO DAILY 90 tabs 3RF NS Changed From tamsulosin 0.4 mg PO DAILY 90 days 90 caps 3RF To tamsulosin 0.8 mg (2 x 0.4 mg) PO DAILY 90 days 180 caps 3RF Refilled metformin 1,000 mg PO BID 180 tabs 3RF
[2025-03-13 08:59] VITALS: BP 138/54; PULSE 73; RESP 14; TEMP 36.7; O2SAT 93; BMI 23.3
--- OUTSIDE RECORDS SUMMARY | 2025-03-13 09:15 | XMS_ITS | Clinical Summary ---
Author Organization [facility] 299 [facility] Address [address] [place] [address] Phone Care Team Providers Care Image Archivist Name Role Phone Unavailable Primary Care Provider [...] to complete this topic Insurance [facility]ARE [facility] [place]
== END 2025-03-13 09:25 | disposition home or self-care (01) ==
LOC: HO.HMCFM 08:48
PROVIDERS: PCP Internal Medicine; Visit Provider Internal Medicine
DX: E11.42 Type 2 diabetes mellitus with diabetic polyneuropathy (principal); C61 Malignant neoplasm of prostate; D64.9 Anemia, unspecified; E78.00 Pure hypercholesterolemia, unspecified; R61 Generalized hyperhidrosis; R35.1 Nocturia

== ENCOUNTER → 2025-03-13 08:48 | Outpatient (BNVA) | payer MEDICARE, OTHER, SELFPAY | PROVIDERS: PCP Internal Medicine; Visit Provider Internal Medicine | DX: E11.42 Type 2 diabetes mellitus with diabetic polyneuropathy (principal); C61 Malignant neoplasm of prostate; D64.9 Anemia, unspecified; E78.00 Pure hypercholesterolemia, unspecified; R61 Generalized hyperhidrosis; R35.1 Nocturia; Z79.899 Other long term (current) drug therapy | CPT/HCPCS: 99212 ==

== ENCOUNTER 2025-06-12 09:42 | Outpatient (REF) | payer MEDICARE, OTHER, SELFPAY ==
[2025-06-12 11:44] LABS: MANUAL DIFF FLAG NO
[2025-06-12 11:57] LABS: Hematocrit 35.7 % (42.0-52.0); Hemoglobin 12.4 g/dl (14.0-18.0); Imm Gran Abs Auto 0.03 X10*3/uL (0.00-0.03); Imm Gran Pct Auto 0.5 % (0.0-0.4); Lymphocytes Absolute Auto 1.0 X10*3/uL (1.2-4.9); Mean Corpuscular HGB Conc 34.7 g/dl (31.0-36.0); Mean Corpuscular Hemoglobin 32.0 pg (27.0-33.0); Mean Corpuscular Volume 92.0 fL (80.0-98.0); NRBC Abs Auto 0.000 X10*3/uL (0.0-0.012); NRBC Pct Auto 0.0 /100WBC (0.0-0.2); Platelet Count 221 X10*3/uL (160-400); Red Blood Count 3.88 X10*6/uL (4.60-5.80); White Blood Count 6.6 X10*3/uL (4.8-10.8)
--- OUTSIDE RECORDS SUMMARY | 2025-06-12 12:22 | XMS_ITS | Encounter Summary ---
Author Organization [facility] Address [address] [place] [address] Care Team Providers Care Account Leader Name Role Phone Unavailable Primary Care Provider Unavailabl e Encounter Details Date Type Department Care Team (Late st Contact Info) Description 10/13/2024 Lab Requisition [facility] - Main Lab [address] [place] [phone] Phu Aguero PA [address] [address] Personal history of malignant neoplasm of prostate [...] LAB CHEMISTRY METHOD 10/13/2024 2:34 PM EST [facility] Blood Venous blood specimen / Unknown 10/13/2024 8:47 AM EST 10/13/2024 1:16 PM EST Narrative [facility] - 10/13/2024 2:34 PM EST The Siemens Advia Centaur Chemiluminescent Immunoassay is used. Results obtained with different assay methods or kits cannot be used interchangeably. Results cannot be interpreted as absolute evidence of the presence or absence of malignant disease. us Phu ANAYA LAB BLOOD ORDERABLES Final Resul t [facility] [address] [place] [address], documented in this encounter Visit Diagnoses Diagnosis Personal history of malignant neoplasm of prostate documented in this encounter
--- OUTSIDE RECORDS SUMMARY | 2025-06-12 12:22 | XMS_ITS | Clinical Summary ---
Author Organization [facility] 299 [facility] Address [address] [place] [address] Phone Care Team Providers Care Engagement Lead Name Role Phone Unavailable Primary Care Provider [...] series) 2021 Cholesterol Screening (Lipid Panel) 08/30/2022 Falls Risk Assessment 08/30/2022 Hepatitis C Screening 08/30/2022 Medicare Annual Wellness Visit 08/30/2022 Social Influencers of Health Screening 08/30/2022 Depression Screening 09/27/2024 COVID-19 Vaccine (3 - 2024-2 6 season) 2025 11/19/2020, 10/29/2020 Influenza Vaccine (#1) 2025 HIB Vaccines Aged Out No longer [...] to complete this topic Insurance MEDICARE [employer] [place]
--- OUTSIDE RECORDS SUMMARY | 2025-06-12 12:22 | XMS_ITS | Encounter Summary ---
Author Organization [facility] Address [address] [place] [address] Care Team Providers Care Supervisor Grips Name Role Phone Unavailable Primary Care Provider Unavailabl e Encounter Details Date Type Department Care Team (Late st Contact Info) Description 10/16/2024 Lab Requisition [facility] - Main Lab 299 [facility] [place] [phone] Pio Schmitz MD [address] [address] Dysphagia, unspecified Social History Tobacco Use Types [...] intraepithelial eosinophils identified. 10/17/2024 12:24 PM EST [facility] Clinical Information Dysphagia R/O Eosinophilic Esophagitis 10/17/2024 12:24 PM EST [facility] Gross Description A. Esophagus, mid biopsy: Labeled mid esophagus biopsy . Received in formalin are two soft, white-vivas tissues, approximately measuring 0.3 cm and 0.4 cm in greatest diameters, which are wrapped in paper and submitted in toto in one cassette, two pieces, multiple levels. dvb/DG 10/17/2024 12:24 PM EST [facility] Disclaimer Unless otherwise specified, all tissue is 10% NB formalin fixed and paraffin embedded. 10/17/2024 12:24 PM EST [facility] Tissue Esophageal structure / Unknown 10/13/2024 10/16/2024 9:49 AM EST us Pio Schmitz MD LAB PATHOLOGY ORDERABLES Fi nal Result [facility] [address] [place] [address], documented in this encounter Visit Diagnoses Diagnosis Dysphagia, unspecified documented in this encounter
[2025-06-12 12:45] LABS: Folate 11.4 ng/mL (> or = 4.0); Vitamin B12 1151 pg/mL (200-900)
[2025-06-12 13:04] LABS: Alanine Aminotransferase 34 U/L (0-40); Albumin Level 4.0 g/dL (3.5-5.0); Alkaline Phosphatase 56 U/L (39-117); Anion Gap 10 (12-20); Aspartate Amino Transferase 30 U/L (5-37); Blood Urea Nitrogen 21 mg/dL (9-16); Calcium 9.1 mg/dL (8.4-10.2); Carbon Dioxide 29 mmol/L (22-29); Chloride 103 mmol/L (96-108); Cholesterol 122 mg/dL (<200); Estimated Glomerular Filt Rate > 60; HDL Cholesterol 41 mg/dL (>40); Potassium 4.9 mmol/L (3.3-5.1); Sodium 137 mmol/L (135-145); Total Protein 6.2 g/dL (6.5-8.0); Triglycerides 171 mg/dL (<150)
[2025-06-12 15:42] LABS: Microalbum/Creatinine Ratio Ur 290.3 ug/mg cr (<30)
== END 2025-06-12 09:43 | disposition home or self-care (01) ==
LOC: HO.WFDLDS 09:42
PROVIDERS: Visit Provider Internal Medicine
DX: C61 Malignant neoplasm of prostate (principal); E11.42 Type 2 diabetes mellitus with diabetic polyneuropathy; E78.00 Pure hypercholesterolemia, unspecified
CPT/HCPCS: 36415; 80053; 80061; 82043; 82570; 82607; 82746; 84443; 85025; 86481

== ENCOUNTER 2025-06-18 08:55 | Outpatient (AMB) | payer MEDICARE, OTHER, SELFPAY ==
--- NOTE | 2025-06-18 08:58 | A.OFFPC_ITS ---
Vital Signs 06/18/25 09:02 Height 5 ft 8 in Weight 146 lb BMI 22.2 BP 124/68 Blood Pressure Location Rt brachial Position Sitting Respiration 14 Pulse 73 Pulse Source Pulse Oximeter Pulse Oximetry (%) 97 Oxygen Delivery Method Room Air Intake Visit Reasons: follow up DM Intake Note: Diabetes follow up. Ran out of glipizide 45 days ago, was unable to get a refill. Allergies No Known Allergies Allergy (Verified 06/18/25 09:10) Tobacco use date assessed: 03/13/25 Fall risk assessment: No Falls in past year Last assessed Fall Risk: 06/18/25 Dental Screening Dental Screen Date: 03/13/25 HPI HPI Comments History of Present Illness Details 79 year old male with a past medical his tory of diabetes, arthritis, hyperlipidemia, prostate cancer for follow up Diabetes: On metformin 1000mg twice daily, glipizide, actos 30mg. A1C 11.2% from 8.7 from 9.0%. He has been out of his glipizide for 1-2 months. Has trouble getting it with the pharmacy. Stable bilateral foot neuropathy. Annual eye exams with Dr Alba. ED on cialis. Jardiance, Farxiga too expensive. Declines insulin, glp CV: on lipitor. Denies chest pain. Prostate Ca-follows with urology, rad onc. Finished radiation and ADT. Follows with oncology. Endorses continued nocturia. On flomax 0.8. Sometimes snores- declines sleep study OA:Bilateral wrist pain, bilateral knee pain. Using prn CBD. Esophageal stricture: Follows with Dr Schmitz~ Once annually Anemia is stable. Smear reassuring. No recent weight loss. Denies LN, cough. Colonoscopy 2020. ROS see HPI PHYSICAL EXAM: GENERAL: Alert and oriented x 3. NAD EYES: EOMI. Anicteric. HENT: Moist mucous membranes. No scleral icterus. No cervical lymphadenopathy. LUNGS: Clear to auscultation bilaterally. CARDIOVASCULAR: Regular rate and rhythm. No murmur. No JVD. ABDOMEN: Soft, non-tender +bs EXTREMITIES: trace b/l edema. Non-tender. SKIN: No rashes or lesions. Warm. NEUROLOGIC: No focal neurological deficits. CN II-XII grossly intact PSYCHIATRIC: Cooperative. Appropriate mood and affect [facility] Medical History Shoulder separation Vitamin B12 deficiency Type 2 diabetes mellitus Prostate cancer Hypercholesterolemia Hemorrhoids Esophageal stricture Elevated PSA Elevated MCV Arthritis Surgical History History of eye surgery History of elbow surgery History of vasectomy History of colonoscopy Family History Mother Alzheimer's dementia Father Cancer Brother Diabetes Social History Household Members: Spouse and Children Housing: House Are you a primary child care to a significant other at home: No Do you presently have visiting nurse or other home services: No 75 years or older and lives alone: No Alcohol intake: current Alcohol intake frequency: 0-2 drinks per day Alcohol type: wine Patient Tobacco Use Status: Former Tobacco user Cigarette Packs Per Day: 1 Years Smoked: 4 e-Cigarette/Vaping Use: Never Used service: Yes Current occupational status: employed 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 Current occupational exposures/hazards: No Cognitive needs: No Hearing needs: Yes Vision needs: No Questionnaire Thrive Questionnaire Date Thrive assessed: 11/27/24 I am a: Patient What is your living situation today?: I have a steady place to live Within the past 12 months, did the food you bought not last and you didn't have the money to get more?: Never true Within the past 12 months, did you worry whether your food would run out before you got money to buy more?: Never true Do you have trouble paying for medicines?: No Do you have trouble getting transportation to medical appointments?: No Do you have trouble paying your heating and electricity bill?: No Do you have trouble taking care of your child, family member or friend?: No Do you have trouble with day-to-day activities such as bathing, preparing meals, shopping, managing finances, etc.?: No Are you currently unemployed and looking for a job?: No Are you interested in more education?: No Please select the resources that you would like help with: None Currently or been in a relationship where the following occur: No concerns reported THRIVE Score: 0 ASHLI-7 AMB Questionnaire ASHLI-7 Date ASHLI - 7 assessed: 12/04/24 Source: Developed by Drs. Lior Lynn, Khadra Najera, Tim Hammer and colleagues, with an educational carol from [employer]. Physical exam (Primary Care) Vital Signs: Last Vital Signs Pulse 73 06/18/25 09:02 Resp 14 06/18/25 09:02 BP 124/68 06/18/25 09:02 Pulse Ox 97 06/18/25 09:02 Oxygen Delivery Method Room Air 06/18/25 09:02 BMI result Body Mass Index 22.2 Tobacco/Smoking Status: Tobacco use Status Tobacco use date assessed 03/13/25 06/18/25 09:06 Patient Tobacco Use Status Former Tobacco user 06/18/25 09:06 e-Cigarette/Vaping Use Never Used 06/18/25 09:06 Thrive Assessment: Date of Thrive Assessment Date Thrive assessed 11/27/24 06/18/25 09:06 Currently or been in a relationship where the following occur: No concerns reported Results AMB Hemoglobin A1c AMB Hemoglobin A1c 11.2 % Last Edit by Marisa Seymour CMA on 06/18/25 09:1 2 Results Reviewed Results Reviewed: Laboratory Last Values Hgb A1c (Clinic) 11.2 % (4.0-6.0) H 06/18/25 09:08 Coding Level of Care Code Est Pt Level 4 (79684) Complex EM visit Add On G2211 Diagnoses Type 2 diabetes mellitus with diabetic polyneuropathy, without long-term current use of insulin E11.42 Diabetes mellitus termite control technician insulin use: without fdc use Diabetes mellitus complication status: with neurologic complications Diabetes mellitus complication detail: with polyneuropathy Hypercholesterolemia E78.00 Prostate cancer C61 Assessment & Plan Assessment & Plan (1) Type 2 diabetes mellitus: Code(s): E11.9 - Type 2 diabetes mellitus without complications Category: Medical Qualifiers: Diabetes mellitus termite control technician insulin use: without fdc use Diabetes mellitus complication status: with neurologic complications Diabetes mellitus complication detail: with polyneuropathy Qualified Code(s): E11.42 - Type 2 diabetes mellitus with diabetic polyneuropathy (2) Hypercholesterolemia: Code(s): E78.00 - Pure hypercholesterolemia, unspecified Category: Medical (3) Prostate cancer: Code(s): C61 - Malignant neoplasm of prostate Category: Medical Plan 79 year old follow up DM-poorly controlled. Restart glipizide, increase actos. Recheck A1C 3 months Neuropathy-refill gabapentin Nocturia-f/up urology. consider sleep study Orders: Orders AMB Hemoglobin A1c Today E11.42 - Type 2 diabetes mellitus with diabetic polyneuropathy Hemoglobin A1c 3 Months E11.42 - Type 2 diabetes mellitus with diabetic polyneuropathy Lipid Panel 3 Months E11.42 - Type 2 diabetes mellitus with diabetic polyneuropathy Complete Blood Count Auto Diff 3 Months E11.42 - Type 2 diabetes mellitus with diabetic polyneuropathy Medications: New gabapentin 200 mg (2 x 100 mg) PO TID 810 caps 0RF pioglitazone 45 mg PO DAILY 90 tabs 3RF Refilled glipizide ER 20 mg (2 x 10 mg) PO DAILY 180 tabs 3RF Discontinued pioglitazone Discontinued Reason: Doctor's Order 30 mg PO DAILY 90 tabs 3RF
[2025-06-18 09:02] VITALS: BP 124/68; PULSE 73; RESP 14; O2SAT 97; BMI 22.2
--- OUTSIDE RECORDS SUMMARY | 2025-06-18 10:21 | XMS_ITS | Encounter Summary ---
Author Organization [facility] Address [address] [place] [address] Care Team Providers Care Rock Picker Name Role Phone Unavailable Primary Care Provider Unavailabl e Encounter Details Date Type Department Care Team (Late st Contact Info) Description 10/13/2024 Lab Requisition [facility] - Main Lab [address] [place] [phone] Phu Aguero PA [address] [address] Personal history of malignant neoplasm of prostate [...] ANAYA LAB BLOOD ORDERABLES Final Resul t [facility] [address] [place] [address], documented in this encounter Visit Diagnoses Diagnosis Personal history of malignant neoplasm of prostate documented in this encounter
--- OUTSIDE RECORDS SUMMARY | 2025-06-18 10:21 | XMS_ITS | Clinical Summary ---
Author Organization [facility] [address] [facility] Address [address] [place] [address] Phone Care Team Providers Care Web Content Writer Name Role Phone Unavailable Primary Care Provider [...]
--- OUTSIDE RECORDS SUMMARY | 2025-06-18 10:21 | XMS_ITS | Encounter Summary ---
Author Organization [facility] Address [address] [place] [address] Care Team Providers Care Hyperion Essbase Developer Name Role Phone Unavailable Primary Care Provider Unavailabl e Encounter Details Date Type Department Care Team (Late st Contact Info) Description 10/16/2024 Lab Requisition [facility] - Main Lab 299 [facility] [place] [phone] Pio Schmitz MD [address] [address] Dysphagia, unspecified Social History Tobacco Use Types [...] intraepithelial eosinophils identified. 10/17/2024 12:24 PM EST [facility] Clinical Information Dysphagia R/O Eosinophilic Esophagitis 10/17/2024 12:24 PM EST [facility] Gross Description A. Esophagus, mid biopsy: Labeled mid esophagus biopsy . Received in formalin are two soft, white-vivas tissues, approximately measuring 0.3 cm and 0.4 cm in greatest diameters, which are wrapped in paper and submitted in toto in one cassette, two pieces, multiple levels. dvb/DG 10/17/2024 12:24 PM EST [facility] Disclaimer Unless otherwise specified, all tissue is 10% NB formalin fixed and paraffin embedded. 10/17/2024 12:24 PM EST [facility] Tissue Esophageal structure / Unknown 10/13/2024 10/16/2024 9:49 AM EST us Pio Schmitz MD LAB PATHOLOGY ORDERABLES Fi nal Result [facility] [address] [place] [address], documented in this encounter Visit Diagnoses Diagnosis Dysphagia, unspecified documented in this encounter
== END 2025-06-18 09:28 | disposition home or self-care (01) ==
LOC: HO.HMCFM 08:55
PROVIDERS: PCP Internal Medicine; Visit Provider Internal Medicine
DX: E11.42 Type 2 diabetes mellitus with diabetic polyneuropathy (principal); E78.00 Pure hypercholesterolemia, unspecified; C61 Malignant neoplasm of prostate

== ENCOUNTER → 2025-06-18 08:55 | Outpatient (BNVA) | payer MEDICARE, OTHER, SELFPAY | PROVIDERS: PCP Internal Medicine; Visit Provider Internal Medicine | DX: E11.42 Type 2 diabetes mellitus with diabetic polyneuropathy (principal); E78.00 Pure hypercholesterolemia, unspecified; C61 Malignant neoplasm of prostate; K22.2 Esophageal obstruction; D64.9 Anemia, unspecified; M19.90 Unspecified osteoarthritis, unspecified site; M25.531 Pain in right wrist; M25.532 Pain in left wrist; M25.561 Pain in right knee; M25.562 Pain in left knee; Z79.84 Long term (current) use of oral hypoglycemic drugs | CPT/HCPCS: 83036; 99212 ==

== ENCOUNTER 2025-08-10 08:54 | Outpatient (AMB) | payer MEDICARE, OTHER, SELFPAY ==
--- NOTE | 2025-08-10 09:05 | A.OFFPC_ITS ---
Vital Signs 08/10/25 09:06 Height 5 ft 8 in Weight 151 lb 8 oz BMI 23.0 BP 124/64 Blood Pressure Location Rt brachial Position Sitting Respiration 14 Pulse 65 Pulse Source Pulse Oximeter Temp 98.1 F Temp Source Oral Pulse Oximetry (%) 95 Oxygen Delivery Method Room Air Intake Visit Reasons: Pain in right nipple Intake Note: Pain in right nipple, about 5-6 weeks. Change Management Administrator Required: No Allergies No Known Allergies Allergy (Verified 08/10/25 09:05) Tobacco use date assessed: 08/10/25 Fall risk assessment: No Falls in past year Last assessed Fall Risk: 08/10/25 Dental Screening Dental Screen Date: 03/13/25 HPI HPI Comments History of Present Illness Details 80 year old male with a past medical his tory of diabetes, arthritis, hyperlipidemia, prostate cancer for follow up Patient reports pain in the right nipple for the past 5-6 weeks. Feels lump/fullness under the areola. No discharge. No new medications. Diabetes: On metformin 1000mg twice daily, glipizide, actos 45mg (increased last visit). A1C 11.2% from 8.7 from 9.0%. He was out of his glipizide for 1-2 months. Has trouble getting it with the pharmacy. Stable bilateral foot neuropathy. Annual eye exams with Dr Alba. ED on cialis. Jardiance, Farxiga too expensive. Declines insulin, glp CV: on lipitor. Denies chest pain. Prostate Ca-follows with urology, rad onc. Finished radiation and ADT. Follows with oncology. Endorses continued nocturia. On flomax 0.8. Sometimes snores- declines sleep study OA:Bilateral wrist pain, bilateral knee pain. Using prn CBD. Esophageal stricture: Follows with Dr Schmitz~ Once annually Anemia is stable. Smear reassuring. No recent weight loss. Denies LN, cough. Colonoscopy 2020. ROS see HPI PHYSICAL EXAM: GENERAL: Alert and oriented x 3. NAD EYES: EOMI. Anicteric. HENT: Moist mucous membranes. No scleral icterus. No cervical lymphadenopathy. LUNGS: Clear to auscultation bilaterally. BREAST: Prominence of right breast, venous prominence, mobile mass subarealor, no nipple changes CARDIOVASCULAR: Regular rate and rhythm. No murmur. No JVD. ABDOMEN: Soft, non-tender +bs EXTREMITIES: trace b/l edema. Non-tender. SKIN: No rashes or lesions. Warm. NEUROLOGIC: No focal neurological deficits. CN II-XII grossly intact PSYCHIATRIC: Cooperative. Appropriate mood and affect [facility] Medical History Shoulder separation Vitamin B12 deficiency Type 2 diabetes mellitus Prostate cancer Hypercholesterolemia Hemorrhoids Esophageal stricture Elevated PSA Elevated MCV Arthritis Surgical History History of eye surgery History of elbow surgery History of vasectomy History of colonoscopy Family History Mother Alzheimer's dementia Father Cancer Brother Diabetes Social History Household Members: Spouse and Children Housing: House Are you a primary animal caretaker supervisor to a significant other at home: No Do you presently have visiting nurse or other home services: No 75 years or older and lives alone: No Alcohol intake: current Alcohol intake frequency: 0-2 drinks per day Alcohol type: wine Patient Tobacco Use Status: Former Tobacco user Cigarette Packs Per Day: 1 Years Smoked: 4 Packs Per Year: 4 e-Cigarette/Vaping Use: Never Used service: Yes Current occupational status: employed 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 Current occupational exposures/hazards: No Cognitive needs: No Hearing needs: Yes Vision needs: No Questionnaire Thrive Questionnaire Date Thrive assessed: 11/27/24 I am a: Patient What is your living situation today?: I have a steady place to live Within the past 12 months, did the food you bought not last and you didn't have the money to get more?: Never true Within the past 12 months, did you worry whether your food would run out before you got money to buy more?: Never true Do you have trouble paying for medicines?: No Do you have trouble getting transportation to medical appointments?: No Do you have trouble paying your heating and electricity bill?: No Do you have trouble taking care of your child, family member or friend?: No Do you have trouble with day-to-day activities such as bathing, preparing meals, shopping, managing finances, etc.?: No Are you currently unemployed and looking for a job?: No Are you interested in more education?: No Please select the resources that you would like help with: None Currently or been in a relationship where the following occur: No concerns reported THRIVE Score: 0 AUDIT C Alcohol Use Questionnaire (AUDIT-C) 1. How often do you have a drink containing alcohol?: 4 or more times a week 2. How many drinks containing alcohol do you have on a typical day when you are drinking?: 1 or 2 3. How often do you have six or more drinks on one occasion?: Never Total Score: 4 ASHLI-7 AMB Questionnaire ASHLI-7 Date ASHLI - 7 assessed: 12/04/24 Source: Developed by Drs. Lior Lynn, Khadra Najera, Tim Hammer and colleagues, with an educational carol from [employer]. Physical exam (Primary Care) Vital Signs: Last Vital Signs Temp 98.1 F 08/10/25 09:06 Pulse 65 08/10/25 09:06 Resp 14 08/10/25 09:06 BP 124/64 08/10/25 09:06 Pulse Ox 95 08/10/25 09:06 Oxygen Delivery Method Room Air 08/10/25 09:06 BMI result Body Mass Index 23.0 Tobacco/Smoking Status: Tobacco use Status Tobacco use date assessed 08/10/25 08/10/25 09:09 Patient Tobacco Use Status Former Tobacco user 08/10/25 09:09 e-Cigarette/Vaping Use Never Used 08/10/25 09:09 Thrive Assessment: Date of Thrive Assessment Date Thrive assessed 11/27/24 08/10/25 09:09 Currently or been in a relationship where the following occur: No concerns reported Coding Level of Care Code Est Pt Level 4 (15105) Diagnoses Type 2 diabetes mellitus with diabetic polyneuropathy, without long-term current use of insulin E11.42 Diabetes mellitus group home insulin use: without group home use Diabetes mellitus complication status: with neurologic complications Diabetes mellitus complication detail: with polyneuropathy Breast pain, right N64.4 Assessment & Plan Assessment & Plan (1) Type 2 diabetes mellitus: Code(s): E11.9 - Type 2 diabetes mellitus without complications Category: Medical Qualifiers: Diabetes mellitus group home insulin use: without terminal operations manager use Diabetes mellitus complication status: with neurologic complications Diabetes mellitus complication detail: with polyneuropathy Qualified Code(s): E11.42 - Type 2 diabetes mellitus with diabetic polyneuropathy (2) Breast pain, right: Code(s): N64.4 - Mastodynia Category: Medical Plan Right breast pain, mass Trial keflex. Mammo and us ordered Orders: Orders MM diagnostic mammo unilat RT Today N64.4 - Mastodynia US breast RT complete Today N64.4 - Mastodynia Medications: New cephalexin 500 mg PO Q6H 28 caps 0RF 7 days
[2025-08-10 09:06] VITALS: BP 124/64; PULSE 65; RESP 14; TEMP 36.7; O2SAT 95; BMI 23.0
== END 2025-08-10 10:22 | disposition home or self-care (01) ==
LOC: HO.HMCFM 08:56
PROVIDERS: PCP Internal Medicine; Visit Provider Internal Medicine
DX: E11.42 Type 2 diabetes mellitus with diabetic polyneuropathy (principal); N64.4 Mastodynia

== ENCOUNTER → 2025-08-10 08:54 | Outpatient (BNVA) | payer MEDICARE, OTHER, SELFPAY | PROVIDERS: PCP Internal Medicine; Visit Provider Internal Medicine | DX: N64.4 Mastodynia (principal); E11.42 Type 2 diabetes mellitus with diabetic polyneuropathy; C61 Malignant neoplasm of prostate | CPT/HCPCS: 99212 ==

== ENCOUNTER 2025-09-12 07:55 | Outpatient (REF) | payer MEDICARE, OTHER, SELFPAY ==
--- OUTSIDE RECORDS SUMMARY | 2025-09-12 07:58 | XMS_ITS | Data Portability ---
Author Organization [place] [facility], Allergy Address [address] [address] Care Team Providers Care School Psychological Examiner Name Role Phone SANTO DANG Primary Care [...] amplification and medical clearance was provided today. [email or web address] Not available 11/30/2024 14:05:26 Plan of Treatment Reminders Order Date Submit Date Provider Last Modified By Organization Details Last Modified Time Details Appointments None record ed. Lab None record ed. Referral None record ed. Procedures None record ed. Surgeries None record ed. Imaging None record ed. Medication Orders None record ed. Patient TargetsNo targets recorded. Patient InstructionsNo instructions [...] Sensorineur al hearing loss of bilateral ears [id number] Active 2024 FLORENCIA RAMIREZ , AUD 100 [facility],[place] [address], [place], [phone], [facility] 13:09:22 Impacted cerumen of bilateral ears [id number] 108 Active 2024 GUERA NORTH PA-C 100 [facility] [address], [place], [address], [facility] [place] 14:04:01 Problem Notes None recorded. Procedures Surgical History Date Name Laterality Status Provider Name and Address Organization Details Recorded Time Cerumen removal without microscope bilat completed GUERA NORTH PA-C 100 [facility],[place] [address], [place], [address], [facility] 11/30/2024 14:03:56 Comp Audio with Tymps - 22734 & 24382 completed SYLVESTER YOST 100 [facility],[place] [address], [place], [address], [facility] 11/30/2024 13:09:17 Imaging Results None recorded. Procedure [...] 1 T PO D FOR 4 DAYS 06/11 completed Not Available Not Available Not Available glipizide ER 10 mg tablet, extended [...] t Available tamsulosin 0.4 mg capsule TAKE 2 CAPSULES BY MOUTH DAILY active Not Available Not Available No t Available metformin 1,000 mg tablet TAKE 1 TABLET BY MOUTH TWICE DAILY active Not Available Not Available No [...] Updated DateTime 11/30/2024 172.72 cm 23.1 kg/m2 76249.04 g Suzanna Tinoco [place] - [facility] 11/30/2024 13:22:01 Social History None recorded. Functional Status None recorded. Mental Status None recorded. Family History Nothing Reported. Medical History Condition Response Hearing Loss Y Past Encounters Encounter ID Performer Location Encounter Start Date Encounter Closed Date Diagnosis/Indication Diagnosis SNOMED-CT Code Diagnosis ICD10 Code Diagnosis IMO Codes Diagnosis Note [id number] GUERA NORTH PA-C [facility] [address] [address] 11/30/2024 12:21:20 11/30/2024 14:00:04 Impacted cerumen of bilateral ears [id number] 611434 H61.23 Sensorineu ral hearing loss of bilateral ears 876061761 H90.3 [id number] SYLVESTER YOST [facility] [address] [address] 11/30/2024 12:21:20 11/30/2024 14:00:03 Sensorineural hearing loss of bilateral ears 259308913 H90.3 Audiologic al evaluation results: Right ear: Normal sloping to severe sensorineu ral hearing loss with excellent word recognitio n. Left ear: Normal through 2 kHz sloping to severe sensorineu ral hearing loss with excellent word recognitio n. Tympanomet ry: Right Ear:Type A Left Ear:Type A Health Concerns Section Related Observation LastModified by Organization Detai ls LastModified Time None Recorded Concern Status LastModified by Organization Details LastModified Time None Recorded Advance Directives Directive None Recorded Payers Insurance Date Sequence Insurance Name Policy Number Policy Lindsey Covered Member ID Lindsey Member ID Guarantor Name 11/23/2024 2 [facility] Sonny Nelson [id number] Sonny Nelson 06/11/2025 1 [place] [employer] Sonny Nelson [id number] Sonny Nelson 06/11/2025 2 [employer] (MEDICARE SUPPLEMENT) Sonny Nelson [id number] Sonny Nelson Notes Date Note Type Note Provider Name and Address Organization Details Recorded Time 11/30/2024 text/html ROS as noted in the HPI 79-year-old male presents for evaluation of hearing loss. He reports gradual decline in his hearing worse on the right for the past few years. History of noise exposure in the . Denies otalgia, otorrhea, tinnitus, and vertigo. Denies history of recurrent ear infections or prior otologic surgeries. GUERA NORTH PA-C [address] [place] [address], [phone], [facility] - [facility] 11/30/2024 14:06:46
--- OUTSIDE RECORDS SUMMARY | 2025-09-12 07:58 | XMS_ITS | Encounter Summary ---
Author Organization [facility] Address [address] [place] [address] Care Team Providers Care Channel Man Name Role Phone Unavailable Primary Care Provider Unavailabl e Encounter Details Date Type Department Care Team (Late st Contact Info) Description 10/16/2024 Lab Requisition [facility] - Main Lab 299 [facility] [place] [phone] Pio Schmitz MD [address] [address] Dysphagia, unspecified Social History Tobacco Use Types [...] PM EST [facility] at 1224 EST Clinical Information Dysphagia R/O Eosinophilic Esophagitis 10/17/2024 12:24 PM EST [facility] Gross Description A. Esophagus, [...] Result [facility] [address] [place] [address], documented in this encounter Visit Diagnoses Diagnosis Dysphagia, unspecified documented in this encounter
--- OUTSIDE RECORDS SUMMARY | 2025-09-12 07:58 | XMS_ITS | Clinical Summary ---
Author Organization [facility] 299 [facility] Address [address] [place] [address] Phone Care Team Providers Care Insurance Sales Manager Name Role Phone Unavailable Primary Care Provider [...]
--- OUTSIDE RECORDS SUMMARY | 2025-09-12 07:58 | XMS_ITS | Encounter Summary ---
Author Organization [facility] Address [address] [place] [address] Care Team Providers Care Assistant Offset Press Operator Name Role Phone Unavailable Primary Care Provider Unavailabl e Encounter Details Date Type Department Care Team (Late st Contact Info) Description 10/13/2024 Lab Requisition [facility] - Main Lab [address] [place] [phone] Phu Aguero PA [address] [address] Personal history of malignant neoplasm of prostate [...] ANAYA LAB BLOOD ORDERABLES Final Resul t [facility] ([facility] [address] [place] [address], documented in this encounter Visit Diagnoses Diagnosis Personal history of malignant neoplasm of prostate documented in this encounter
[2025-09-12 11:21] LABS: MANUAL DIFF FLAG NO
[2025-09-12 11:40] LABS: Hematocrit 38.6 % (42.0-52.0); Hemoglobin 12.7 g/dl (14.0-18.0); Imm Gran Abs Auto 0.02 X10*3/uL (0.00-0.03); Imm Gran Pct Auto 0.3 % (0.0-0.4); Lymphocytes Absolute Auto 1.1 X10*3/uL (1.2-4.9); Mean Corpuscular HGB Conc 32.9 g/dl (31.0-36.0); Mean Corpuscular Hemoglobin 31.1 pg (27.0-33.0); Mean Corpuscular Volume 94.6 fL (80.0-98.0); NRBC Abs Auto 0.000 X10*3/uL (0.0-0.012); NRBC Pct Auto 0.0 /100WBC (0.0-0.2); Platelet Count 211 X10*3/uL (160-400); Red Blood Count 4.08 X10*6/uL (4.60-5.80); White Blood Count 6.3 X10*3/uL (4.8-10.8)
[2025-09-12 11:51] LABS: Cholesterol 202 mg/dL (<200); HDL Cholesterol 45 mg/dL (>40); Triglycerides 154 mg/dL (<150)
== END 2025-09-12 07:56 | disposition home or self-care (01) ==
LOC: HO.WFDLDS 07:55
PROVIDERS: Visit Provider Internal Medicine
DX: E11.42 Type 2 diabetes mellitus with diabetic polyneuropathy (principal)
CPT/HCPCS: 36415; 80061; 83036; 85025